=== PATIENT | female | born 1960 | race American Indian/Alaskan Native ===

== ENCOUNTER 2018-06-02 21:29 | Emergency (ER) | payer MEDICARE, OTHER ==
[2018-06-02 21:35] VITALS: BP 151/98
--- NOTE | 2018-06-02 23:16 | EDM.PDOC ---
ED HPI GENERAL MEDICAL PROBLEM - General Chief Complaint: Lower Extremity Injury/Pain Stated Complaint: RIGHT LEG PAIN [id number] Time Seen by Provider: 06/02/18 21:40 Source of Information: Reports: Patient History Limitations: Reports: No Limitations - History of Present Illness INITIAL COMMENTS - FREE TEXT/NARRATIVE: C/o right leg pain for past week, describes as burning throbbing sensation, Location of adriel moves lower to upper leg moves from side to side. No injury, hx RA and diabetes. No hx clotting disorder. Tried to be seen at [facility] [place] but unable to get appointment for another month. Right Leg Pain Score (Numeric/FACES): 9 - Related Data Allergies Allergy/AdvReac Type Severity Reaction Status Date / Time codeine Allergy Other Verified 06/02/18 21:35 Home Meds: Home Meds Omeprazole [Prilosec] 20 mg PO BID 11/19/13 [History] Hydroxychloroquine [Plaquenil] 200 mg PO BID 06/27/14 [History] Etanercept [Enbrel] 25 mg SQ WEEKLY 10/29/14 [History] Cyclobenzaprine [Flexeril] 10 mg PO DAILY PRN 12/24/14 [History] Aspirin [Adult Low Dose Aspirin EC] 81 mg PO DAILY 01/24/17 [History] Ibuprofen 800 mg PO Q6HR PRN 01/24/17 [History] Lisinopril 10 mg PO DAILY 01/24/17 [History] DULoxetine HCl [Duloxetine HCl] 90 mg PO DAILY 06/02/18 [History] Past Medical History Cardiovascular History: Reports: High Cholesterol, Hypertension Gastrointestinal History: Reports: GERD Musculoskeletal History: Reports: Fracture Endocrine/Metabolic History: Reports: Diabetes, Type II - Past Surgical History GI Surgical History: Reports: Cholecystectomy Social & Family History - Tobacco Use Smoking Status *Q: Current Every Day Smoker Years of Tobacco use: 20 Packs/Tins Daily: 0.5 Second Hand Smoke Exposure: Yes - Recreational Drug Use Recreational Drug Use: No Review of Systems - Review of Systems Review Of Systems: ROS reveals no pertinent complaints other than HPI. ED EXAM, GENERAL - Physical Exam Exam: See Below Exam Limited By: No Limitations General Appearance: Alert, No Apparent Distress Eye Exam: Bilateral Eye: EOMI Ears: Normal External Exam Nose: Normal Inspection Throat/Mouth: Normal Inspection, Normal Gums, Normal Oropharynx Head: Atraumatic, Normocephalic Neck: Normal Inspection Respiratory/Chest: No Respiratory Distress, Lungs Clear, Normal Breath Sounds Cardiovascular: Normal Peripheral Pulses, Regular Rate, Rhythm Peripheral Pulses: 2+: Dorsalis Pedis (R) GI/Abdominal: Normal Bowel Sounds Extremities: Other (scatterd variscosities right lower leg, none superficially apparent in current location of pain in lateral upper portion of anterior lower leg) Neurological: Alert, Oriented, Normal Cognition, Normal Gait Psychiatric: Normal Affect Skin Exam: Warm, Dry, Intact, Normal Color Course - Vital Signs Last Recorded V/S: Last Vital Signs Temp 97.1 F 06/02/18 21:32 Pulse 79 06/02/18 21:32 Resp 18 06/02/18 21:32 BP 151/98 H 06/02/18 21: Pulse Ox 96 06/02/18 21:32 - Orders/Labs/Meds Labs: Laboratory Tests 06/02/18 06/02/18 06/02/18 Range/Units 22:50 22:50 22:50 WBC 12.5 H (5.0-10.0) 10^3/uL RBC 4.71 (4.2-5.4) 10^6/uL Hgb 13.9 (12.0-16.0) g/dL Hct 42.8 (37.0-47.0) % MCV 90.9 (80-100) fL MCH 29.5 (27.0-34.0) pg MCHC 32.5 L (33.0-35.0) g/dL Plt Count 336 (150-450) 10^3/uL Neut % (Auto) 46.0 (42.2-75.2) % Lymph % (Auto) 45.4 (20.5-50.1) % [place] % (Auto) 7.0 (2-8) % Eos % (Auto) 1.4 (1.0-3.0) % Baso % (Auto) 0.2 (0.0-1.0) % D-Dimer, Quantitative 203 (0-400) ng/mL Sodium 137 (135-145) mmol/L Potassium 4.0 (3.6-5.0) mmol/L Chloride 101 (101-111) mmol/L Carbon Dioxide 26.0 (21.0-31.0) mmol/L Anion Gap 14.0 BUN 16 (7-18) mg/dL Creatinine 0.7 (0.6-1.3) mg/dL Est Cr Clr Drug Dosing 80.75 mL/min Estimated GFR (MDRD) > 60 BUN/Creatinine Ratio 22.85 Glucose 112 H (74-105) mg/dL Calcium 9.0 (8.4-10.2) mg/dl Total Bilirubin 0.4 (0.2-1.0) mg/dL AST 20 (10-42) IU/L ALT 18 (10-60) IU/L Alkaline Phosphatase 96 (42-121) IU/L C-Reactive Protein (0.0-1.3) mg/dL Total Protein 7.6 (6.7-8.2) g/dl Albumin 4.0 (3.2-5.5) g/dl Globulin 3.6 Albumin/Globulin Ratio 1.11 06/02/18 Range/Units 22:50 WBC (5.0-10.0) 10^3/uL RBC (4.2-5.4) 10^6/uL Hgb (12.0-16.0) g/dL Hct (37.0-47.0) % MCV (80-100) fL MCH (27.0-34.0) pg MCHC (33.0-35.0) g/dL Plt Count (150-450) 10^3/uL Neut % (Auto) (42.2-75.2) % Lymph % (Auto) (20.5-50.1) % [place] % (Auto) (2-8) % Eos % (Auto) (1.0-3.0) % Baso % (Auto) (0.0-1.0) % D-Dimer, Quantitative (0-400) ng/mL Sodium (135-145) mmol/L Potassium (3.6-5.0) mmol/L Chloride (101-111) mmol/L Carbon Dioxide (21.0-31.0) mmol/L Anion Gap BUN (7-18) mg/dL Creatinine (0.6-1.3) mg/dL Est Cr Clr Drug Dosing mL/min Estimated GFR (MDRD) BUN/Creatinine Ratio Glucose (74-105) mg/dL Calcium (8.4-10.2) mg/dl Total Bilirubin (0.2-1.0) mg/dL AST (10-42) IU/L ALT (10-60) IU/L Alkaline Phosphatase (42-121) IU/L C-Reactive Protein 1.0 (0.0-1.3) mg/dL Total Protein (6.7-8.2) g/dl Albumin (3.2-5.5) g/dl Globulin Albumin/Globulin Ratio Departure - Departure Time of Disposition: 23:44 Disposition: Home, Self-Care 01 Condition: Good Clinical Impression: Leg pain, anterior Qualifiers: Laterality: right Qualified Code(s): M79.604 - Pain in right leg - Discharge Information *PRESCRIPTION DRUG MONITORING PROGRAM REVIEWED*: Not Applicable Instructions: Musculoskeletal Pain Referrals: PCP,None [Primary Care Provider] - Forms: ED Department Discharge Additional Instructions: light activity follow in clinic for ultrasound and further testing tylenol 650mg every 4-6 hours as needed for discomfort aspirin 81mg enteric coated daily
[2018-06-02 23:17] LABS: CHLORIDE,CL 101 mmol/L (101-111); SODIUM,NA 137 mmol/L (135-145)
== END 2018-06-02 23:53 | disposition home or self-care (01) ==
LOC: DL.ED 21:29
DX: M79.604 Pain in right leg (principal); I10 Essential (primary) hypertension; E11.9 Type 2 diabetes mellitus without complications; F17.210 Nicotine dependence, cigarettes, uncomplicated; Z88.5 Allergy status to narcotic agent; Z79.82 Long term (current) use of aspirin; Z79.899 Other long term (current) drug therapy
CPT/HCPCS: 36415; 80053; 85025; 85379; 86140; 99283

== ENCOUNTER 2019-05-15 08:00 | Emergency (ER) | payer MEDICARE, OTHER ==
[2019-05-15 08:26] VITALS: BP 137/73; PULSE 73
--- NOTE | 2019-05-15 08:34 | EDM.PDOC ---
ED HPI GENERAL MEDICAL PROBLEM - General Chief Complaint: Neuro Symptoms/Deficits Stated Complaint: FELL THIS MORNING- NO BALANCE Time Seen by Provider: 05/15/19 08:10 Source of Information: Reports: Patient, Family, RN, RN Notes Reviewed History Limitations: Reports: No Limitations - History of Present Illness INITIAL COMMENTS - FREE TEXT/NARRATIVE: Pt to ER with c/o dizziness. States the past two night she has gotten out of bed and felt very weak and dizzy. Patient states today she fell. Denies hitting her head or getting knocked out. Patient denies recent illness. Denies cough, congestion, runny nose, fever, chills, chest pain, SOB, vomiting or diarrhea. Pt states she is nauseated, especially when she sits up. States she has trouble with her eyes, so blurred vision at times is not new for her. States today her arms feel cool and tingly. Denies urinary sx. NIH score = 0 Onset: Today, Sudden - Related Data Allergies Allergy/AdvReac Type Severity Reaction Status Date / Time codeine Allergy Other Verified 05/15/19 09:21 Home Meds: Home Meds Omeprazole [Prilosec] 20 mg PO BID 11/19/13 [History] Hydroxychloroquine [Plaquenil] 200 mg PO BID 06/27/14 [History] Aspirin [Adult Low Dose Aspirin EC] 81 mg PO DAILY 01/24/17 [History] Ibuprofen 800 mg PO Q6HR PRN 01/24/17 [History] DULoxetine HCl [Duloxetine HCl] 60 mg PO DAILY 06/02/18 [History] Etanercept [Enbrel] 50 mg SUBCUT WEEKLY 05/15/19 [History] Ketorolac [Toradol] 10 mg PO Q8H PRN 05/15/19 [History] Losartan [Cozaar] 25 mg PO DAILY 05/15/19 [History] Propranolol HCl [Propranolol] 120 mg PO DAILY 05/15/19 [History] SUMAtriptan [Imitrex] 50 mg PO ASDIRECTED PRN 05/15/19 [History] atorvaSTATin [Lipitor] 10 mg PO DAILY 05/15/19 [History] Past Medical History Cardiovascular History: Reports: High Cholesterol, Hypertension Gastrointestinal History: Reports: GERD Musculoskeletal History: Reports: Fracture Endocrine/Metabolic History: Reports: Diabetes, Type II - Past Surgical History GI Surgical History: Reports: Cholecystectomy ED ROS GENERAL - Review of Systems Review Of Systems: ROS reveals no pertinent complaints other than HPI. ED EXAM, DIZZINESS - Physical Exam Exam: See Below Exam Limited By: No Limitations General Appearance: Alert, WD/WN, Mild Distress Eye Exam: Bilateral Eye: Nystagmus (minimal) Ears: Normal External Exam, Hearing Grossly Normal Nose: Nasal Tenderness Throat/Mouth: Normal Inspection, Normal Lips, Normal Teeth, Normal Gums, Normal Oropharynx, Normal Voice, No Airway Compromise Head Exam: Atraumatic, Normocephalic Neck: Normal Inspection, Supple, Non-Tender, Full Range of Motion Respiratory/Chest: No Respiratory Distress, No Accessory Muscle Use, Chest Non- Tender, Crackles (fine, bases bilaterally) Cardiovascular: Normal Peripheral Pulses, Regular Rate, Rhythm, No Edema, No Gallop, No JVD, No Murmur, No Rub GI/Abdominal: Normal Bowel Sounds, Soft, Non-Tender, No Organomegaly, No Distention, No Abnormal Bruit, No Mass (Female) Exam: Deferred Rectal (Female) Exam: Deferred Neurological: Alert, Normal Mood/Affect, Normal Dorsiflexion, CN II-XII Intact, Normal Plantar Flexion, Normal Gait, Normal Reflexes, No Motor/Sensory Deficits , Oriented x 3 Back Exam: Normal Inspection, Full Range of Motion Extremities: Normal Inspection, Normal Range of Motion, Non-Tender, No Pedal Edema, Normal Capillary Refill Psychiatric: Normal Affect, Normal Mood Skin Exam: Warm, Dry, Intact, Normal Color, No Rash Course - Vital Signs Last Recorded V/S: Last Vital Signs Temp 97.0 F 05/15/19 08:22 Pulse 73 05/15/19 08:22 Resp 16 05/15/19 08:22 BP 137/73 05/15/19 08:22 Pulse Ox 95 05/15/19 08:22 - Orders/Labs/Meds Orders: Active Orders 24 hr Category Date Time Status EKG Documentation Completion [RC] STAT Care 05/15/19 08:28 Active Peripheral IV Care [RC] . DIRECTED Care 05/15/19 08:29 Active Consult to Physical Therapy [PT Evaluation and Cons 05/15/19 09:44 Active Treatment] [CONS] Routine CULTURE URINE [RM] Stat Lab 05/15/19 10:37 Received Peripheral IV Insertion Adult [OM.PC] Stat Oth 05/15/19 08:28 Ordered Labs: Laboratory Tests 05/15/19 05/15/19 05/15/19 Range/Units 08:52 08:52 08:52 WBC 8.5 (5.0-10.0) 10^3/uL RBC 4.95 (4.2-5.4) 10^6/uL Hgb 14.7 (12.0-16.0) g/dL Hct 45.3 (37.0-47.0) % MCV 91.5 (80-100) fL MCH 29.7 (27.0-34.0) pg MCHC 32.5 L (33.0-35.0) g/dL Plt Count 344 (150-450) 10^3/uL Neut % (Auto) 48.5 (42.2-75.2) % Lymph % (Auto) 40.3 (20.5-50.1) % [place] % (Auto) 9.1 H (2-8) % Eos % (Auto) 1.9 (1.0-3.0) % Baso % (Auto) 0.2 (0.0-1.0) % Add Manual Diff Yes Neutrophils % (Manual) 48 (42-75) % Lymphocytes % (Manual) 48 (20-50) % Monocytes % (Manual) 4 (2-8) % Atypical Lymphocytes Few PT 9.1 (9.0-12.0) SEC INR 0.9 (0.9-1.2) Sodium 139 (135-145) mmol/L Potassium 3.8 (3.6-5.0) mmol/L Chloride 102 (101-111) mmol/L Carbon Dioxide 26.0 (21.0-31.0) mmol/L Anion Gap 14.8 BUN 17 (7-18) mg/dL Creatinine 0.7 (0.6-1.3) mg/dL Est Cr Clr Drug Dosing TNP Estimated GFR (MDRD) > 60 BUN/Creatinine Ratio 24.28 Glucose 135 H (74-105) mg/dL Calcium 8.8 (8.4-10.2) mg/dl Total Bilirubin 0.4 (0.2-1.0) mg/dL AST 18 (10-42) IU/L ALT 21 (10-60) IU/L Alkaline Phosphatase 90 (42-121) IU/L Troponin I < 0.02 (0.00-0.02) ng/ml Total Protein 7.8 (6.7-8.2) g/dl Albumin 3.9 (3.2-5.5) g/dl Globulin 3.9 Albumin/Globulin Ratio 1.00 Urine Color (YELLOW) Urine Appearance (CLEAR) Urine pH (5.0-9.0) Ur Specific [place] (1.005-1.030) Urine Protein (NEGATIVE) Urine Glucose (UA) (NEGATIVE) Urine Ketones (NEGATIVE) Urine Occult Blood (NEGATIVE) Urine Nitrite (NEGATIVE) Urine Bilirubin (NEGATIVE) Urine Urobilinogen (0.2-1.0) mg/dL Ur Leukocyte Esterase (NEGATIVE) Urine RBC /HPF Urine WBC (0-5/HPF) /HPF Ur Epithelial Cells (NOT SEEN) /HPF Amorphous Sediment (NOT SEEN) /HPF Urine Bacteria (0-FEW/HPF) /HPF Urine Mucus (NOT SEEN) /LPF 05/15/19 Range/Units 10:37 WBC (5.0-10.0) 10^3/uL RBC (4.2-5.4) 10^6/uL Hgb (12.0-16.0) g/dL Hct (37.0-47.0) % MCV (80-100) fL MCH (27.0-34.0) pg MCHC (33.0-35.0) g/dL Plt Count (150-450) 10^3/uL Neut % (Auto) (42.2-75.2) % Lymph % (Auto) (20.5-50.1) % [place] % (Auto) (2-8) % Eos % (Auto) (1.0-3.0) % Baso % (Auto) (0.0-1.0) % Add Manual Diff Neutrophils % (Manual) (42-75) % Lymphocytes % (Manual) (20-50) % Monocytes % (Manual) (2-8) % Atypical Lymphocytes PT (9.0-12.0) SEC INR (0.9-1.2) Sodium (135-145) mmol/L Potassium (3.6-5.0) mmol/L Chloride (101-111) mmol/L Carbon Dioxide (21.0-31.0) mmol/L Anion Gap BUN (7-18) mg/dL Creatinine (0.6-1.3) mg/dL Est Cr Clr Drug Dosing Estimated GFR (MDRD) BUN/Creatinine Ratio Glucose (74-105) mg/dL Calcium (8.4-10.2) mg/dl Total Bilirubin (0.2-1.0) mg/dL AST (10-42) IU/L ALT (10-60) IU/L Alkaline Phosphatase (42-121) IU/L Troponin I (0.00-0.02) ng/ml Total Protein (6.7-8.2) g/dl Albumin (3.2-5.5) g/dl Globulin Albumin/Globulin Ratio Urine Color Yellow (YELLOW) Urine Appearance Cloudy (CLEAR) Urine pH 6.0 (5.0-9.0) Ur Specific [place] 1.010 (1.005-1.030) Urine Protein Negative (NEGATIVE) Urine Glucose (UA) Negative (NEGATIVE) Urine Ketones Negative (NEGATIVE) Urine Occult Blood Trace-intact H (NEGATIVE) Urine Nitrite Positive H (NEGATIVE) Urine Bilirubin Negative (NEGATIVE) Urine Urobilinogen 0.2 (0.2-1.0) mg/dL Ur Leukocyte Esterase Negative (NEGATIVE) Urine RBC 0-5 /HPF Urine WBC 5-10 H (0-5/HPF) /HPF Ur Epithelial Cells Few (NOT SEEN) /HPF Amorphous Sediment Few (NOT SEEN) /HPF Urine Bacteria Many H (0-FEW/HPF) /HPF Urine Mucus Moderate H (NOT SEEN) /LPF Meds: Medications Discontinued Medications Generic Name Dose Route Start Last Admin Trade Name Freq PRN Reason Stop Dose Admin Sodium Chloride 1,000 mls @ 999 mls/hr 05/15/19 08:58 05/15/19 09:19 Normal Saline IV 05/15/19 09:58 999 mls/hr .BOLUS ONE Administration Ondansetron HCl 4 mg 05/15/19 10:31 05/15/19 10:36 Zofran IV 05/15/19 10:32 4 mg ONETIME ONE Administration Sodium Chloride 10 ml 05/15/19 08:28 05/15/19 09:20 Saline Flush FLUSH 10 ml ASDIRECTED PRN Administration Keep Vein Open - Radiology Interpretation Free Text/Narrative:: Chest xray: FINDINGS: Lungs: Mid inspiratory effort with resultant low lung volumes. There is minimal bibasilar atelectasis. Pleural space: Unremarkable. No pleural effusion. No pneumothorax. Heart/Mediastinum: Unremarkable. No cardiomegaly. Bones/joints: Unremarkable. IMPRESSION: There is minimal bibasilar atelectasis. Thank you for allowing us to participate in the care of your patient. Dictated and Authenticated by: Lonny Torrez MD 05/15/2019 9:21 AM Central Time ([place] & [place]) Head CT wo contrast: FINDINGS: Brain: Normal. No hemorrhage. Unremarkable white matter. No mass effect. Ventricles: Normal. No ventriculomegaly. Bones/joints: Unremarkable. No acute fracture. Sinuses: Visualized sinuses are unremarkable. No fluid levels. Mastoid air cells: Visualized mastoid air cells are well aerated. Soft tissues: Unremarkable. IMPRESSION: 1. No acute intracranial abnormality. 2. Danielle Stroke Program Early CT Score (ASPECTS) = 10. See rad report Departure - Departure Time of Disposition: 11:12 Disposition: Home, Self-Care 01 Condition: Fair Clinical Impression: UTI (urinary tract infection) Qualifiers: Urinary tract infection type: site unspecified Hematuria presence: without hematuria Qualified Code(s): N39.0 - Urinary tract infection, site not specified - Discharge Information *PRESCRIPTION DRUG MONITORING PROGRAM REVIEWED*: No *COPY OF PRESCRIPTION DRUG MONITORING REPORT IN PATIENT MONIQUE: No Instructions: Urinary Tract Infection, Adult, [id number], Dizziness, Easy-to- Read Referrals: PCP,None [Primary Care Provider] - Forms: ED Department Discharge Additional Instructions: Drink plenty of water Monitor your blood sugars RX: Nitrofurantoin Follow up with your primary care facility if no improvement for further workup ( possible carotid US or cardiology referral) - My Orders Last 24 Hours: My Active Orders 05/15/19 08:28 EKG Documentation Completion [RC] STAT Peripheral IV Insertion Adult [OM.PC] Stat 05/15/19 08:29 Peripheral IV Care [RC] . DIRECTED 05/15/19 09:44 Consult to Physical Therapy [PT Evaluation and Treatment] [CONS] Routine 05/15/19 10:37 CULTURE URINE [RM] Stat - Assessment/Plan Last 24 Hours: My Active Orders 05/15/19 08:28 EKG Documentation Completion [RC] STAT Peripheral IV Insertion Adult [OM.PC] Stat 05/15/19 08:29 Peripheral IV Care [RC] . DIRECTED 05/15/19 09:44 Consult to Physical Therapy [PT Evaluation and Treatment] [CONS] Routine 05/15/19 10:37 CULTURE URINE [RM] Stat
[2019-05-15 09:18] LABS: ANION GAP 14.8; CHLORIDE,CL 102 mmol/L (101-111); SODIUM,NA 139 mmol/L (135-145)
[2019-05-15] MEDS: Sodium Chloride 0.9% 1,000 ML IV ONE (09:19)
[2019-05-15] MEDS: Sodium Chloride 0.9% 10 ML Syringe FLUSH PRN (09:20)
[2019-05-15] MEDS: Ondansetron 4 MG/2 ML SDV IV ONE (10:36)
== END 2019-05-15 11:32 | disposition home or self-care (01) ==
LOC: DL.ED 08:00
DX: R42 Dizziness and giddiness (principal); N39.0 Urinary tract infection, site not specified; I10 Essential (primary) hypertension; E11.9 Type 2 diabetes mellitus without complications; Z90.49 Acquired absence of other specified parts of digestive tract; Z88.5 Allergy status to narcotic agent; W19.XXXA Unspecified fall, initial encounter
CPT/HCPCS: 36415; 70450; 71045; 80053; 81001; 84484; 85025; 85610; 87086; 87088; 87186; 93005; 96361; 96374; 99284-25; J2405; J7030

== ENCOUNTER 2019-11-20 21:25 | Inpatient (IN) | payer MEDICARE, OTHER ==
[2019-11-20] MEDS ORDERED: Iopamidol 612 MG/ML 100 ML Bottle IVPUSH ONE (22:58)
[2019-11-20] MEDS ORDERED: Potassium Chloride 10 MEQ in Premix Bag 1 BAG IV ONE (23:57)
[2019-11-21] MEDS ORDERED: Piperacillin/Tazobactam 3.375 GM in Sodium Chloride 0.9% 100 ML IV ONE ×2 (00:02→01:30)
--- NOTE | 2019-11-21 00:07 | EDM.PDOC ---
"ED HPI GENERAL MEDICAL PROBLEM - General Chief Complaint: Genitourinary Problem Time Seen by Provider: 11/20/19 22:00 Source of Information: Reports: Patient History Limitations: Reports: No Limitations - History of Present Illness INITIAL COMMENTS - FREE TEXT/NARRATIVE: ED with c/o feeling weak, no appetite, nausea without vomiting weak x 6 days. States noting solid but has been trying to push water and gatorade, Fever up to 102 today, Diaphoretic for EMS. On plaquinel and Enbrel. Seen at [facility] yesterday told pneumonia and UTI started on Azithromycin and bactrim. 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, NSAIDS Generalized Pain Score (Numeric/FACES): 5 - Related Data Allergies Allergy/AdvReac Type Severity Reaction Status Date / Time No Known Allergies Allergy Verified 11/21/19 01:29 Home Meds: Home Meds Omeprazole [Prilosec] 20 mg PO BID 11/19/13 [History] Hydroxychloroquine [Plaquenil] 200 mg PO BID 06/27/14 [History] Aspirin [Adult Low Dose Aspirin EC] 81 mg PO DAILY 01/24/17 [History] Ibuprofen 800 mg PO Q6HR PRN 01/24/17 [History] DULoxetine HCl [Duloxetine HCl] 60 mg PO DAILY 06/02/18 [History] Etanercept [Enbrel] 50 mg SUBCUT WEEKLY 05/15/19 [History] Losartan [Cozaar] 25 mg PO DAILY 05/15/19 [History] Propranolol HCl [Propranolol] 120 mg PO DAILY 05/15/19 [History] SUMAtriptan [Imitrex] 50 mg PO ASDIRECTED PRN 05/15/19 [History] atorvaSTATin [Lipitor] 10 mg PO DAILY 05/15/19 [History] Past Medical History Cardiovascular History: Reports: High Cholesterol, Hypertension Gastrointestinal History: Reports: GERD Genitourinary History: Reports: UTI, Recurrent PUMPER BREWERY History: Reports: Musculoskeletal History: Reports: Fracture Endocrine/Metabolic History: Reports: Diabetes, Type II - Past Surgical History GI Surgical History: Reports: Cholecystectomy Social & Family History - Tobacco Use Smoking Status *Q: Current Every Day Smoker Years of Tobacco use: 37 Packs/Tins Daily: 0.5 Used Tobacco, but Quit: No Second Hand Smoke Exposure: Yes - Caffeine Use Caffeine Use: Reports: Coffee - Recreational Drug Use Recreational Drug Use: No ED ROS GENERAL - Review of Systems Review Of Systems: See Below Constitutional: Reports: Fever, Malaise, Weakness, Fatigue, Diaphoresis, Decreased Appetite HEENT: Reports: No Symptoms Respiratory: Reports: No Symptoms Cardiovascular: Reports: No Symptoms GI/Abdominal: Reports: Abdominal Pain, Anorexia, Decreased Appetite : Reports: Urgency Musculoskeletal: Reports: Joint Pain (RA) Skin: Reports: No Symptoms Neurological: Reports: Weakness (generalized) ED EXAM, GI/ABD - Physical Exam Exam: See Below Exam Limited By: Other General Appearance: Moderate Distress, Obese Eyes: Bilateral: EOMI Ears: Normal External Exam Nose: Normal Inspection Throat/Mouth: Normal Inspection Head: Atraumatic, Normocephalic Neck: Normal Inspection, Full Range of Motion Respiratory/Chest: No Respiratory Distress, Lungs Clear, Normal Breath Sounds Cardiovascular: Normal Peripheral Pulses, Regular Rate, Rhythm GI/Abdominal Exam: Tender (general greater mid), Abnormal Bowel Sounds ( hypoactive). No: Guarding, Rebound, Hepatomegaly, Splenomegaly Extremities: Normal Inspection Neurological: Alert, Oriented, Normal Cognition Psychiatric: Normal Affect Skin Exam: Warm, Dry, Intact Course - Vital Signs Last Recorded V/S: Last Vital Signs Temp 97.2 F 11/21/19 00:58 Pulse 66 11/21/19 00:58 Resp 16 11/21/19 00:58 BP 106/51 L 11/21/19 00:58 Pulse Ox 96 11/21/19 00:58 - Orders/Labs/Meds Orders: Active Orders 24 hr Category Date Time Status Abdomen Pelvis w Cont [CT] Urgent Exams 11/20/19 22:57 Taken CXR [Chest 1V Frontal] [CR] Urgent Exams 11/20/19 21:38 Taken CULTURE BLOOD [BC] Stat Lab 11/20/19 22:10 Received CULTURE BLOOD [BC] Stat Lab 11/20/19 22:15 Received CULTURE URINE [RM] Stat Lab 11/20/19 21:43 Received Blood Culture x2 Reflex Set [OM.PC] Stat Oth 11/20/19 21:38 Ordered Medication Orders Acetaminophen (Tylenol) 650 mg PO Q4H PRN PRN Reason: Pain (Mild 1-3)/fever Aspirin (Halfprin) 81 mg PO DAILY URIEL Atorvastatin Calcium (Lipitor) 10 mg PO DAILY URIEL Docusate Sodium (Colace) 100 mg PO BID PRN PRN Reason: Constipation Duloxetine HCl (Cymbalta) 60 mg PO DAILY PENDING SALE TO [facility] Enoxaparin Sodium (Lovenox) 40 mg SUBCUT DAILY PENDING SALE TO [facility] Hydroxychloroquine Sulfate (Plaquenil) 200 mg PO BID PENDING SALE TO [facility] Sodium Chloride (Normal Saline) 1,000 mls @ 125 mls/hr IV ASDIRECTED PENDING SALE TO [facility] Piperacillin Sod/Tazobactam (Sod 3.375 gm/ Sodium Chloride) 100 mls @ 200 mls/ hr IV Q6H PENDING SALE TO [facility] Potassium Chloride 10 meq/ (Premix) 100 mls @ 100 mls/hr IV Q2H URIEL Stop: 11/21/19 04:59 Last Admin: 11/21/19 02:00 Dose: 100 mls/hr Losartan Potassium (Cozaar) 25 mg PO DAILY PENDING SALE TO [facility] Magnesium Hydroxide (Milk Of Magnesia) 30 ml PO Q12H PRN PRN Reason: Constipation Non-Formulary Medication (Sumatriptan [Imitrex]) 50 mg PO ASDIRECTED PRN PRN Reason: migraine Omeprazole (Omeprazole) 20 mg PO BIDAC PENDING SALE TO [facility] Ondansetron HCl (Zofran) 4 mg IVPUSH Q6H PRN PRN Reason: Nausea/Vomiting Propranolol HCl (Inderal La) 120 mg PO DAILY PENDING SALE TO [facility] Zolpidem Tartrate (Ambien) 5 mg PO BEDTIME PENDING SALE TO [facility] Labs: Laboratory Tests 11/20/19 11/20/19 11/20/19 Range/Units 21:43 22:15 22:15 WBC 17.5 H (5.0-10.0) 10^3/uL RBC 4.02 L (4.2-5.4) 10^6/uL Hgb 11.9 L D (12.0-16.0) g/dL Hct 35.4 L (37.0-47.0) % MCV 88.1 D (80-100) fL MCH 29.6 (27.0-34.0) pg MCHC 33.6 (33.0-35.0) g/dL Plt Count 334 (150-450) 10^3/uL Neut % (Auto) 67.4 (42.2-75.2) % Lymph % (Auto) 22.0 (20.5-50.1) % [place] % (Auto) 10.2 H (2-8) % Eos % (Auto) 0.3 L (1.0-3.0) % Baso % (Auto) 0.1 (0.0-1.0) % Add Manual Diff Yes Neutrophils % (Manual) 68 (42-75) % Lymphocytes % (Manual) 20 (20-50) % Monocytes % (Manual) 12 H (2-8) % Sodium 132 L (136-145) mmol/L Potassium 3.0 L (3.5-5.1) mmol/L Chloride 95 L (98-107) mmol/L Carbon Dioxide 25 (21-32) mmol/L Anion Gap 15.0 H (7-13) mEq/L BUN 8 (7-18) mg/dL Creatinine 0.97 (0.55-1.02) mg/dL Est Cr Clr Drug Dosing 56.89 mL/min Estimated GFR (MDRD) 59 BUN/Creatinine Ratio 8.2 (No establ ref range) Glucose 128 H (74-99) mg/dL Lactic Acid (0.4-2.0) mmol/L Calcium 7.8 L (8.5-10.1) mg/dL Total Bilirubin 0.6 (0.2-1.0) mg/dL AST 15 (15-37) U/L ALT 25 (14-59) U/L Alkaline Phosphatase 85 (46-116) U/L B-Natriuretic Peptide (0-100) pg/ml Total Protein 7.3 (6.4-8.2) g/dL Albumin 2.9 L (3.4-5.0) g/dL Globulin 4.4 Albumin/Globulin Ratio 0.66 Amylase 9 L (25-115) U/L Lipase 68 L (73-393) U/L Urine Color Yellow (YELLOW) Urine Appearance Cloudy (CLEAR) Urine pH 6.0 (5.0-9.0) Ur Specific [place] 1.015 (1.005-1.030) Urine Protein 100 H (NEGATIVE) Urine Glucose (UA) Negative (NEGATIVE) Urine Ketones Negative (NEGATIVE) Urine Occult Blood Moderate H (NEGATIVE) Urine Nitrite Negative (NEGATIVE) Urine Bilirubin Negative (NEGATIVE) Urine Urobilinogen 1.0 (0.2-1.0) mg/dL Ur Leukocyte Esterase Trace H (NEGATIVE) Urine RBC 5-10 H /HPF Urine WBC 5-10 H (0-5/HPF) /HPF Ur Epithelial Cells Many H (NOT SEEN) /HPF Amorphous Sediment Few (NOT SEEN) /HPF Urine Bacteria Moderate H (0-FEW/HPF) /HPF Urine Mucus Moderate H (NOT SEEN) /LPF 11/20/19 11/20/19 Range/Units 22:15 22:15 WBC (5.0-10.0) 10^3/uL RBC (4.2-5.4) 10^6/uL Hgb (12.0-16.0) g/dL Hct (37.0-47.0) % MCV (80-100) fL MCH (27.0-34.0) pg MCHC (33.0-35.0) g/dL Plt Count (150-450) 10^3/uL Neut % (Auto) (42.2-75.2) % Lymph % (Auto) (20.5-50.1) % [place] % (Auto) (2-8) % Eos % (Auto) (1.0-3.0) % Baso % (Auto) (0.0-1.0) % Add Manual Diff Neutrophils % (Manual) (42-75) % Lymphocytes % (Manual) (20-50) % Monocytes % (Manual) (2-8) % Sodium (136-145) mmol/L Potassium (3.5-5.1) mmol/L Chloride (98-107) mmol/L Carbon Dioxide (21-32) mmol/L Anion Gap (7-13) mEq/L BUN (7-18) mg/dL Creatinine (0.55-1.02) mg/dL Est Cr Clr Drug Dosing mL/min Estimated GFR (MDRD) BUN/Creatinine Ratio (No establ ref range) Glucose (74-99) mg/dL Lactic Acid 0.5 (0.4-2.0) mmol/L Calcium (8.5-10.1) mg/dL Total Bilirubin (0.2-1.0) mg/dL AST (15-37) U/L ALT (14-59) U/L Alkaline Phosphatase (46-116) U/L B-Natriuretic Peptide 16 (0-100) pg/ml Total Protein (6.4-8.2) g/dL Albumin (3.4-5.0) g/dL Globulin Albumin/Globulin Ratio Amylase (25-115) U/L Lipase (73-393) U/L Urine Color (YELLOW) Urine Appearance (CLEAR) Urine pH (5.0-9.0) Ur Specific [place] (1.005-1.030) Urine Protein (NEGATIVE) Urine Glucose (UA) (NEGATIVE) Urine Ketones (NEGATIVE) Urine Occult Blood (NEGATIVE) Urine Nitrite (NEGATIVE) Urine Bilirubin (NEGATIVE) Urine Urobilinogen (0.2-1.0) mg/dL Ur Leukocyte Esterase (NEGATIVE) Urine RBC /HPF Urine WBC (0-5/HPF) /HPF Ur Epithelial Cells (NOT SEEN) /HPF Amorphous Sediment (NOT SEEN) /HPF Urine Bacteria (0-FEW/HPF) /HPF Urine Mucus (NOT SEEN) /LPF Meds: Medications Generic Name Dose Route Start Last Admin Trade Name Freq PRN Reason Stop Dose Admin Acetaminophen 650 mg 11/21/19 00:57 Tylenol PO Q4H PRN Pain (Mild 1-3)/fever Aspirin 81 mg 11/21/19 09:00 Halfprin PO DAILY PENDING SALE TO [facility] Atorvastatin Calcium 10 mg 11/21/19 09:00 Lipitor PO DAILY PENDING SALE TO [facility] Docusate Sodium 100 mg 11/21/19 00:57 Colace PO BID PRN Constipation Duloxetine HCl 60 mg 11/21/19 09:00 Cymbalta PO DAILY PENDING SALE TO [facility] Enoxaparin Sodium 40 mg 11/21/19 09:00 Lovenox SUBCUT DAILY PENDING SALE TO [facility] Hydroxychloroquine Sulfate 200 mg 11/21/19 09:00 Plaquenil PO BID PENDING SALE TO [facility] Sodium Chloride 1,000 mls @ 125 mls/hr 11/21/19 01:00 Normal Saline IV ASDIRECTED PENDING SALE TO [facility] Piperacillin Sod/Tazobactam 100 mls @ 200 mls/hr 11/21/19 07:00 Sod 3.375 gm/ Sodium Chloride IV Q6H URIEL Potassium Chloride 10 meq/ 100 mls @ 100 mls/hr 11/21/19 02:00 11/21/19 02:00 Premix IV 11/21/19 04:59 100 mls/hr Q2H URIEL Administration Losartan Potassium 25 mg 11/21/19 09:00 Cozaar PO DAILY URIEL Magnesium Hydroxide 30 ml 11/21/19 00:57 Milk Of Magnesia PO Q12H PRN Constipation Non-Formulary Medication 50 mg 11/21/19 01:09 Sumatriptan [Imitrex] PO ASDIRECTED PRN migraine Omeprazole 20 mg 11/21/19 06:00 Omeprazole PO BIDAC URIEL Ondansetron HCl 4 mg 11/21/19 00:57 Zofran IVPUSH Q6H PRN Nausea/Vomiting Propranolol HCl 120 mg 11/21/19 09:00 Inderal La PO DAILY URIEL Zolpidem Tartrate 5 mg 11/21/19 21:00 Ambien PO BEDTIME URIEL Discontinued Medications Generic Name Dose Route Start Last Admin Trade Name Freq PRN Reason Stop Dose Admin Potassium Chloride 10 meq/ 100 mls @ 100 mls/hr 11/20/19 23:57 11/21/19 00:11 Premix IV 11/21/19 00:56 100 mls/hr ONETIME ONE Administration Piperacillin Sod/Tazobactam 100 mls @ 200 mls/hr 11/21/19 00:02 11/21/19 01: 19 Sod 3.375 gm/ Sodium Chloride IV 11/21/19 00:31 200 mls/hr ONETIME ONE Administration Piperacillin Sod/Tazobactam 100 mls @ 200 mls/hr 11/21/19 01:30 11/21/19 01: 46 Sod 3.375 gm/ Sodium Chloride IV 11/21/19 01:59 Not Given ONETIME ONE Iopamidol 100 ml 11/20/19 22:58 11/20/19 23:36 [id number] (61%) IVPUSH 11/20/19 22:59 100 ml ONETIME ONE Administration Zolpidem Tartrate 5 mg 11/21/19 02:00 11/21/19 02:03 Ambien PO 11/21/19 02:01 5 mg ONETIME ONE Administration - Radiology Interpretation Free Text/Narrative:: [facility] Final Radiology Report Call: [phone] assistance Online chat: [email or web address] Name: MALATHI SUAZO Age: 59Years F Date: 11/20/2019 SSN: -- : [id number] Study: CT ABDOMEN/PELVIS W Requesting Physician: FRANCE BARBER Images: [id number] Addl Studies: Provided Clinical History: Contrast: With Contrast Medium: [id number] Contrast Amount: 100 mL Contrast Method: iv Page 1 of 2 PROCEDURE INFORMATION: Exam: CT Abdomen And Pelvis With Contrast Exam date and time: 11/20/2019 11:14 PM Age: 59 years old Clinical indication: Abdominal pain; Generalized; Patient HX: Hematuria, wbc 17, 000. General abdomen pain TECHNIQUE: Imaging protocol: Computed tomography of the abdomen and pelvis with intravenous contrast. Radiation optimization: All CT scans at this facility use at least one of these dose optimization techniques: automated exposure control; mA and/or kV adjustment per patient size (includes targeted exams where dose is matched to clinical indication); or iterative reconstruction. Contrast material: [id number]; Contrast volume: 100 ml; Contrast route: IV; COMPARISON: No relevant prior studies available. FINDINGS: Liver: Fatty liver. The liver is large, measuring 22.4 centimeters craniocaudal dimension. Gallbladder and bile ducts: Prior cholecystectomy. Pancreas: Normal. No ductal dilation. Spleen: Normal. No splenomegaly. Adrenals: Normal. No mass. Kidneys and ureters: The diverticulitis changes are contiguous with inflammatory stranding in the mesenteric fat adjacent to the left kidney. Stomach and bowel: There are nonspecific air-fluid levels within small bowel. Colonic diverticulosis. There are nonspecific air-fluid levels in the colon. There are foci mild-to- moderate diverticulitis involving the descending colon. [id number] inflammatory stranding is present in the mesenteric MALATHI SUAZO | Final Radiology Report CONFIDENTIALITY STATEMENT This report is intended only for use by the referring physician, and only in accordance with law. If you received this in error, call [phone]. Page 2 of 2 adjacent to the areas of diverticulitis disease. There are components of wall thickening also present involving these particular locations. Appendix: The appendix is not identified. No pericecal inflammation. Intraperitoneal space: Unremarkable. No free air. No significant fluid collection. Vasculature: Unremarkable. No abdominal aortic aneurysm. Lymph nodes: There are multiple, diffuse, non pathologically enlarged mesenteric lymph nodes. This is a nonspecific finding. Bladder: Unremarkable as visualized. Reproductive: There is suggestion of fibroid changes involving the uterus. Bones/joints: There are degenerative changes involving the spine, SI joints, hips. Soft tissues: Unremarkable. IMPRESSION: 1. Fatty liver and hepatomegaly. 2. Nonspecific air-fluid levels within large and small bowel. This can be present with enterocolitis. Correlate clinically. 3. Foci of diverticulitis changes involving the descending colon. In addition to an inflammatory process, the differential diagnosis colonic wall thickening at these locations includes underlying neoplasm. Clinical correlation and follow-up recommended. There may be changes of secondary pyelonephritis involving the left kidney. Primary pyelonephritis involving the left kidney is not excluded. Thank you for allowing us to participate in the care of your patient. Dictated and Authenticated by: Jett Viramontes MD 11/20/2019 11:46 PM Central Time ([place] & [place]) - Re-Assessments/Exams Free Text/Narrative Re-Assessment/Exam: 11/21/19 03:30 Dr Herrera admit to [facility]. Patient denies travel . No known exposure to COV-ID 19. Departure - Departure Time of Disposition: 00:04 Disposition: Admitted As Inpatient 67 Condition: Good Clinical Impression: Pyelonephritis, Diverticulitis, Hypokalemia, Immunocompromised state due to drug therapy Rheumatoid arthritis Qualifiers: Rheumatoid arthritis location: unspecified site Rheumatoid factor presence: unspecified presence Qualified Code(s): M06.9 - Rheumatoid arthritis, unspecified - Discharge Information *PRESCRIPTION DRUG MONITORING PROGRAM REVIEWED*: No *COPY OF PRESCRIPTION DRUG MONITORING REPORT IN PATIENT MONIQUE: No Sepsis Event Note - Evaluation Sepsis Screening Result: No Definite Risk - Focused Exam Vital Signs: Vital Signs Temp Pulse Resp BP Pulse Ox 11/20/19 21:58 96.2 F L 67 18 122/52 L 95 Date Exam was Performed: 11/21/19 Time Exam was Performed: 03:29 - My Orders Last 24 Hours: My Active Orders 11/20/19 21:38 CXR [Chest 1V Frontal] [CR] Urgent Blood Culture x2 Reflex Set [OM.PC] Stat 11/20/19 21:43 CULTURE URINE [RM] Stat 11/20/19 22:10 CULTURE BLOOD [BC] Stat 11/20/19 22:15 CULTURE BLOOD [BC] Stat 11/20/19 22:57 Abdomen Pelvis w Cont [CT] Urgent - Assessment/Plan Last 24 Hours: My Active Orders 11/20/19 21:38 CXR [Chest 1V Frontal] [CR] Urgent Blood Culture x2 Reflex Set [OM.PC] Stat 11/20/19 21:43 CULTURE URINE [RM] Stat 11/20/19 22:10 CULTURE BLOOD [BC] Stat 11/20/19 22:15 CULTURE BLOOD [BC] Stat 11/20/19 22:57 Abdomen Pelvis w Cont [CT] Urgent"
[2019-11-21] MEDS ORDERED: Acetaminophen 325 MG Tab PO PRN (00:57)
[2019-11-21] MEDS ORDERED: Ondansetron 4 MG/2 ML SDV IVPUSH PRN (00:57)
[2019-11-21] MEDS ORDERED: Magnesium Hydroxide 400 MG/5 ML Susp 30 ML Cup PO PRN (00:57)
[2019-11-21] MEDS ORDERED: Docusate Sodium 100 MG Cap PO PRN (00:57)
[2019-11-21] MEDS ORDERED: SUMATRIPTAN 50 MG PO PRN (01:09)
--- NOTE | 2019-11-21 01:09 | PCM.HP ---
H&P History of Present Illness - General Date of Service: 11/21/19 Admit Problem/Dx: Admission Diagnosis/Problem Admission Diagnosis/Problem Pyelonephritis Source of Information: Patient History Limitations: Reports: No Limitations - History of Present Illness Initial Comments - Free Text/Narative: Gladis Car is a 59-year-old female who presented to the ED for evaluation of abdominal pain, low appetite with poor oral intake. Her past medical history significant for hypertension, hyperlipidemia Rheumatoid arthritis on Plaquinel and Enbrel. As per patient she is bee having abdominal pain for the past 5 to 6 days. Abdominal pain is generalized, sharp in nature, about 7/10 in severity with no relieving or aggravating factors. It is non radiating and not related to meals. It is accompanied by nausea without vomiting. Her appetite has been low and as a result has not been able to eat anything. She notes weakness. She reports on and off fever chills. Had fever of 102 F prior to presentation. She denies cough, SOB, chest pain. No diarrhea, constipation, dysuria, frequency. No recent travel or sick contact. She was seen at [facility] yesterday and was told she has bronchitis ad UTI. She was discharged on Azithromycin and Bactrim. In the ED labs revealed leukocytosis with left shift. CT abd/Pel was concerning for pyelonephritis vs diverticulosis. She was started on IV Zosyn and IVF. Onset of Symptoms: Reports: Gradual Duration of Symptoms: Reports: Day(s): Location: Reports: Abdomen Quality: Reports: Ache, Dull Severity: Moderate Improves with: Reports: None Worsens with: Reports: None Context: Reports: Rest Associated Symptoms: Reports: No Other Symptoms Generalized Pain Score (Numeric/FACES): 5 - Related Data Allergies/Adverse Reactions: Allergies Allergy/AdvReac Type Severity Reaction Status Date / Time No Known Allergies Allergy Verified 11/21/19 01:29 Home Medications: Home Meds Omeprazole [Prilosec] 20 mg PO BID 11/19/13 [History] Hydroxychloroquine [Plaquenil] 200 mg PO BID 06/27/14 [History] Aspirin [Adult Low Dose Aspirin EC] 81 mg PO DAILY 01/24/17 [History] Ibuprofen 800 mg PO Q6HR PRN 01/24/17 [History] DULoxetine HCl [Duloxetine HCl] 60 mg PO DAILY 06/02/18 [History] Etanercept [Enbrel] 50 mg SUBCUT WEEKLY 05/15/19 [History] Losartan [Cozaar] 25 mg PO DAILY 05/15/19 [History] Propranolol HCl [Propranolol] 120 mg PO DAILY 05/15/19 [History] SUMAtriptan [Imitrex] 50 mg PO ASDIRECTED PRN 05/15/19 [History] atorvaSTATin [Lipitor] 10 mg PO DAILY 05/15/19 [History] Past Medical History Cardiovascular History: Reports: High Cholesterol, Hypertension Gastrointestinal History: Reports: GERD Genitourinary History: Reports: UTI, Recurrent [employer] History: Reports: Musculoskeletal History: Reports: Fracture Endocrine/Metabolic History: Reports: Diabetes, Type II - Past Surgical History GI Surgical History: Reports: Cholecystectomy Social & Family History - Tobacco Use Smoking Status *Q: Current Every Day Smoker Years of Tobacco use: 37 Packs/Tins Daily: 0.5 Used Tobacco, but Quit: No Second Hand Smoke Exposure: Yes - Caffeine Use Caffeine Use: Reports: Coffee - Recreational Drug Use Recreational Drug Use: No H&P Review of Systems - Review of Systems: Review Of Systems: See Below General: Reports: Fever, Chills, Malaise, Weakness, Decreased Appetite HEENT: Reports: No Symptoms Pulmonary: Reports: No Symptoms Cardiovascular: Reports: No Symptoms Gastrointestinal: Reports: Abdominal Pain, Nausea Genitourinary: Reports: No Symptoms Musculoskeletal: Reports: No Symptoms Skin: Reports: No Symptoms Psychiatric: Reports: No Symptoms Neurological: Reports: No Symptoms Hematologic/Lymphatic: Reports: No Symptoms Immunologic: Reports: No Symptoms Exam - Exam Exam: See Below - Vital Signs Vital Signs: Last Vital Signs Temp 96.2 F L 11/20/19 21:58 Pulse 67 11/20/19 21:58 Resp 18 11/20/19 21:58 BP 122/52 L 11/20/19 21:58 Pulse Ox 95 11/20/19 21:58 Weight: 269 lb 3.2 oz - Exam Quality Assessment: DVT Prophylaxis General: Alert, Oriented, 4 HEENT: PERRLA, Hearing Intact, Mucosa Moist & [place], Nares Patent, Normal Nasal Septum, Posterior Pharynx Clear, Conjunctiva Clear, EOMI, EACs Clear, TMs Clear Neck: Supple, Trachea Midline, 2 Lungs: Clear to Auscultation, Normal Respiratory Effort Cardiovascular: Regular Rate, Regular Rhythm GI/Abdominal Exam: Normal Bowel Sounds, Soft, Non-Tender, No Organomegaly, No Distention, No Abnormal Bruit, No Mass, Pelvis Stable, Other (CVA tenderness b/ l) (Female) Exam: Normal External Exam, Normal Speculum Exam, Normal Bimanual Exam Rectal (Female) Exam: Normal Exam, Normal Rectal Tone Back Exam: Normal Inspection, Full Range of Motion, NT Extremities: Normal Inspection, Normal Range of Motion, Non-Tender, No Pedal Edema, Normal Capillary Refill Skin: Warm, Dry, Intact Neurological: Cranial Nerves Intact, Reflexes Equal Bilateral Neuro Extensive - Mental Status: Alert, Oriented x3, Normal Mood/Affect, Normal Cognition Neuro Extensive - Motor, Sensory, Reflexes: CN II-XII Intact, Normal Gait, Normal Reflexes Psychiatric: Alert, Normal Affect, Normal Mood - Patient Data Lab Results Last 24 hrs: Laboratory Results - last 24 hr 11/20/19 11/20/19 11/20/19 Range/Units 21:43 22:15 22:15 WBC 17.5 H (5.0-10.0) 10^3/uL RBC 4.02 L (4.2-5.4) 10^6/uL Hgb 11.9 L D (12.0-16.0) g/dL Hct 35.4 L (37.0-47.0) % MCV 88.1 D (80-100) fL MCH 29.6 (27.0-34.0) pg MCHC 33.6 (33.0-35.0) g/dL Plt Count 334 (150-450) 10^3/uL Neut % (Auto) 67.4 (42.2-75.2) % Lymph % (Auto) 22.0 (20.5-50.1) % Wolfe % (Auto) 10.2 H (2-8) % Eos % (Auto) 0.3 L (1.0-3.0) % Baso % (Auto) 0.1 (0.0-1.0) % Add Manual Diff Yes Neutrophils % (Manual) 68 (42-75) % Lymphocytes % (Manual) 20 (20-50) % Monocytes % (Manual) 12 H (2-8) % Sodium 132 L (136-145) mmol/L Potassium 3.0 L (3.5-5.1) mmol/L Chloride 95 L (98-107) mmol/L Carbon Dioxide 25 (21-32) mmol/L Anion Gap 15.0 H (7-13) mEq/L BUN 8 (7-18) mg/dL Creatinine 0.97 (0.55-1.02) mg/dL Est Cr Clr Drug Dosing 56.89 mL/min Estimated GFR (MDRD) 59 BUN/Creatinine Ratio 8.2 (No establ ref range) Glucose 128 H (74-99) mg/dL Lactic Acid (0.4-2.0) mmol/L Calcium 7.8 L (8.5-10.1) mg/dL Total Bilirubin 0.6 (0.2-1.0) mg/dL AST 15 (15-37) U/L ALT 25 (14-59) U/L Alkaline Phosphatase 85 (46-116) U/L B-Natriuretic Peptide (0-100) pg/ml Total Protein 7.3 (6.4-8.2) g/dL Albumin 2.9 L (3.4-5.0) g/dL Globulin 4.4 Albumin/Globulin Ratio 0.66 Amylase 9 L (25-115) U/L Lipase 68 L (73-393) U/L Urine Color Yellow (YELLOW) Urine Appearance Cloudy (CLEAR) Urine pH 6.0 (5.0-9.0) Ur Specific Allons 1.015 (1.005-1.030) Urine Protein 100 H (NEGATIVE) Urine Glucose (UA) Negative (NEGATIVE) Urine Ketones Negative (NEGATIVE) Urine Occult Blood Moderate H (NEGATIVE) Urine Nitrite Negative (NEGATIVE) Urine Bilirubin Negative (NEGATIVE) Urine Urobilinogen 1.0 (0.2-1.0) mg/dL Ur Leukocyte Esterase Trace H (NEGATIVE) Urine RBC 5-10 H /HPF Urine WBC 5-10 H (0-5/HPF) /HPF Ur Epithelial Cells Many H (NOT SEEN) /HPF Amorphous Sediment Few (NOT SEEN) /HPF Urine Bacteria Moderate H (0-FEW/HPF) /HPF Urine Mucus Moderate H (NOT SEEN) /LPF 11/20/19 11/20/19 Range/Units 22:15 22:15 WBC (5.0-10.0) 10^3/uL RBC (4.2-5.4) 10^6/uL Hgb (12.0-16.0) g/dL Hct (37.0-47.0) % MCV (80-100) fL MCH (27.0-34.0) pg MCHC (33.0-35.0) g/dL Plt Count (150-450) 10^3/uL Neut % (Auto) (42.2-75.2) % Lymph % (Auto) (20.5-50.1) % Wolfe % (Auto) (2-8) % Eos % (Auto) (1.0-3.0) % Baso % (Auto) (0.0-1.0) % Add Manual Diff Neutrophils % (Manual) (42-75) % Lymphocytes % (Manual) (20-50) % Monocytes % (Manual) (2-8) % Sodium (136-145) mmol/L Potassium (3.5-5.1) mmol/L Chloride (98-107) mmol/L Carbon Dioxide (21-32) mmol/L Anion Gap (7-13) mEq/L BUN (7-18) mg/dL Creatinine (0.55-1.02) mg/dL Est Cr Clr Drug Dosing mL/min Estimated GFR (MDRD) BUN/Creatinine Ratio (No establ ref range) Glucose (74-99) mg/dL Lactic Acid 0.5 (0.4-2.0) mmol/L Calcium (8.5-10.1) mg/dL Total Bilirubin (0.2-1.0) mg/dL AST (15-37) U/L ALT (14-59) U/L Alkaline Phosphatase (46-116) U/L B-Natriuretic Peptide 16 (0-100) pg/ml Total Protein (6.4-8.2) g/dL Albumin (3.4-5.0) g/dL Globulin Albumin/Globulin Ratio Amylase (25-115) U/L Lipase (73-393) U/L Urine Color (YELLOW) Urine Appearance (CLEAR) Urine pH (5.0-9.0) Ur Specific All[place] (1.005-1.030) Urine Protein (NEGATIVE) Urine Glucose (UA) (NEGATIVE) Urine Ketones (NEGATIVE) Urine Occult Blood (NEGATIVE) Urine Nitrite (NEGATIVE) Urine Bilirubin (NEGATIVE) Urine Urobilinogen (0.2-1.0) mg/dL Ur Leukocyte Esterase (NEGATIVE) Urine RBC /HPF Urine WBC (0-5/HPF) /HPF Ur Epithelial Cells (NOT SEEN) /HPF Amorphous Sediment (NOT SEEN) /HPF Urine Bacteria (0-FEW/HPF) /HPF Urine Mucus (NOT SEEN) /LPF Result Diagrams: 11/21/19 07:04 11/21/19 07:04 Problem List Initiated/Reviewed/Updated: Yes Orders Last 24hrs: Active Orders 24 hr Category Date Time Status Admission Diagnosis [ADT] Stat ADT 11/21/19 00:14 Ordered Admission Status [Patient Status] [ADT] Routine ADT 11/21/19 00:14 Active Ambulate [RC] ASDIRECTED Care 11/21/19 00:57 Ordered Cardiac Monitoring [RC] . DIRECTED Care 11/21/19 00:14 Active Height and Weight [RC] DAILY Care 11/21/19 00:57 Ordered Intake and Output [RC] QSHIFT Care 11/21/19 00:59 Ordered Notify Provider Vital Signs [RC] ASDIRECTED Care 11/21/19 00:59 Ordered Oxygen Therapy [RC] PRN Care 11/21/19 00:58 Ordered VTE/DVT Education [RC] PER UNIT ROUTINE Care 11/21/19 00:58 Ordered Vital Signs [RC] Q4H Care 11/21/19 00:58 Ordered Regular Diet [DIET] Diet 11/21/19 Breakfast Ordered Abdomen Pelvis w Cont [CT] Urgent Exams 11/20/19 22:57 Taken CXR [Chest 1V Frontal] [CR] Urgent Exams 11/20/19 21:38 Taken BASIC METABOLIC PANEL,BMP [CHEM] DAILY Lab 11/21/19 07:00 Ordered BASIC METABOLIC PANEL,BMP [CHEM] DAILY Lab 11/22/19 07:00 Ordered BASIC METABOLIC PANEL,BMP [CHEM] DAILY Lab 11/23/19 07:00 Ordered CBC W/O DIFF,HEMOGRAM [HEME] DAILY Lab 11/21/19 07:00 Ordered CBC W/O DIFF,HEMOGRAM [HEME] DAILY Lab 11/22/19 07:00 Ordered CBC W/O DIFF,HEMOGRAM [HEME] DAILY Lab 11/23/19 07:00 Ordered CBC W/O DIFF,HEMOGRAM [HEME] DAILY Lab 11/24/19 07:00 Ordered CULTURE BLOOD [BC] Stat Lab 11/20/19 22:10 Received CULTURE BLOOD [BC] Stat Lab 11/20/19 22:15 Received CULTURE URINE [RM] Stat Lab 11/20/19 21:43 Received MAGNESIUM [CHEM] Routine Lab 11/21/19 00:57 Ordered PHOSPHORUS [CHEM] Routine Lab 11/21/19 00:57 Ordered Acetaminophen [Tylenol] Med 11/21/19 00:57 Ordered 650 mg PO Q4H PRN Docusate Sodium [Colace] Med 11/21/19 00:57 Ordered 100 mg PO BID PRN Enoxaparin [Lovenox] Med 11/21/19 09:00 Ordered 40 mg SUBCUT DAILY Magnesium Hydroxide [Milk of Magnesia] Med 11/21/19 00:57 Ordered 30 ml PO Q12H PRN Ondansetron [Zofran] Med 11/21/19 00:57 Ordered 4 mg IVPUSH Q6H PRN Piperacillin/Tazobactam [Zosyn] 3.375 gm Med 11/21/19 01:15 Ordered Sodium Chloride 0.9% [Normal Saline] 100 ml IV Q6H Sodium Chloride 0.9% @ 125 MLS/HR (1000ml) Med 11/21/19 01:00 Ordered Sodium Chloride 0.9% [Normal Saline] 1,000 ml IV ASDIRECTED Blood Culture x2 Reflex Set [OM.PC] Stat Oth 11/20/19 21:38 Ordered Resuscitation Status Routine Resus Stat 11/21/19 00:57 Ordered Medication Orders Acetaminophen (Tylenol) 650 mg PO Q4H PRN PRN Reason: Pain (Mild 1-3)/fever Docusate Sodium (Colace) 100 mg PO BID PRN PRN Reason: Constipation Enoxaparin Sodium (Lovenox) 40 mg SUBCUT DAILY URIEL Sodium Chloride (Normal Saline) 1,000 mls @ 125 mls/hr IV ASDIRECTED URIEL Piperacillin Sod/Tazobactam (Sod 3.375 gm/ Sodium Chloride) 100 mls @ 200 mls/ hr IV Q6H URIEL Magnesium Hydroxide (Milk Of Magnesia) 30 ml PO Q12H PRN PRN Reason: Constipation Ondansetron HCl (Zofran) 4 mg IVPUSH Q6H PRN PRN Reason: Nausea/Vomiting Assessment/Plan Comment:: #Pyelonephritis -Patient presented for evaluation of abdominal pain associated nausea and poor appetite -She reports on and off -Bilateral costophrenic angle tenderness on exam -Abdominal CT concerning for pyelonephritis -Admitted to medical for -Monitor vitals -IVF -Blood cx x 2 -Urine cx -IV Zosyn #Probable sepsis -IVF -IV abx as above #Acute Diverticulitis as per CT abdomen finding -Patient started on Zosyn. Continue #Hypokalemia -Replace IV #Immunosuppressed patient -[place]ed[place] plaque on the in July -We'll monitor vitals closely -Old medication for now in the setting of infection #HTN -BP within is obtainable limits -Continue home medications #Hyperlipidemia -Continue home medications #Carbohydrate consistent diet #Full code
[2019-11-21] MEDS ORDERED: Zolpidem 5 MG Tab PO ONE (02:00)
[2019-11-21] MEDS: Potassium Chloride 10 MEQ in Premix Bag 1 BAG IV SCH ×2 (02:00→03:59)
[2019-11-21] MEDS: Sodium Chloride 0.9% 1,000 ML IV SCH ×3 (06:14→23:22)
[2019-11-21] MEDS: Omeprazole 20 MG Cap.CR PO SCH ×2 (06:14→15:19)
[2019-11-21] MEDS ORDERED: Piperacillin/Tazobactam 3.375 GM in Sodium Chloride 0.9% 100 ML IV SCH (07:00)
[2019-11-21 07:34] LABS: ANION GAP 14.4 mEq/L (7-13); CHLORIDE,CL 101 mmol/L (98-107); SODIUM,NA 139 mmol/L (136-145)
[2019-11-21] MEDS: Losartan 25 MG Tab PO SCH (08:13)
[2019-11-21] MEDS: Enoxaparin 40 MG/0.4 ML Syringe SUBCUT SCH (08:13)
[2019-11-21] MEDS: Aspirin 81 MG Tab.EC PO SCH (08:13)
[2019-11-21] MEDS: Hydroxychloroquine 200 MG Tab PO SCH ×2 (08:13→22:04)
[2019-11-21] MEDS: Propranolol 60 MG Cap.ER PO SCH (08:13)
[2019-11-21] MEDS: DULoxetine 30 MG Cap PO SCH (08:13)
[2019-11-21] MEDS ORDERED: atorvaSTATin 10 MG Tab PO SCH (09:00)
[2019-11-21] MEDS ORDERED: Magnesium Sulfate/D5W 2 GM in Premix Bag 1 BAG IV ONE (11:06)
[2019-11-21] MEDS: Piperacillin/Tazobactam 3.375 GM in Sodium Chloride 0.9% 100 ML IV SCH ×3 (13:41→23:34)
[2019-11-21] MEDS: Potassium Chloride 10 MEQ Tab.ER PO SCH ×2 (13:41→17:59)
[2019-11-21] MEDS ORDERED: Potassium Chloride 10% 20 MEQ/15 ML Soln 15 ML UD Cup PO SCH (18:00)
[2019-11-21] MEDS ORDERED: rOPINIRole 0.25 MG Tab PO PRN (19:30)
[2019-11-21] MEDS ORDERED: Simethicone 80 MG Tab.Chew PO PRN (19:31)
[2019-11-21] MEDS ORDERED: Zolpidem 5 MG Tab PO SCH (21:00)
[2019-11-22] MEDS: Piperacillin/Tazobactam 3.375 GM in Sodium Chloride 0.9% 100 ML IV SCH ×2 (05:56→13:19)
[2019-11-22] MEDS: Omeprazole 20 MG Cap.CR PO SCH (06:00)
[2019-11-22 07:11] LABS: ANION GAP 15.2 mEq/L (7-13); CHLORIDE,CL 105 mmol/L (98-107); SODIUM,NA 140 mmol/L (136-145)
[2019-11-22 07:50] VITALS: BP 111/60; PULSE 59
[2019-11-22] MEDS: Sodium Chloride 0.9% 1,000 ML IV SCH (08:11)
[2019-11-22] MEDS: Potassium Chloride 10 MEQ Tab.ER PO SCH (08:48)
[2019-11-22] MEDS: Losartan 25 MG Tab PO SCH (08:50)
[2019-11-22] MEDS: DULoxetine 30 MG Cap PO SCH (08:50)
[2019-11-22] MEDS: Aspirin 81 MG Tab.EC PO SCH (08:51)
[2019-11-22] MEDS: Propranolol 60 MG Cap.ER PO SCH (08:51)
[2019-11-22] MEDS: Enoxaparin 40 MG/0.4 ML Syringe SUBCUT SCH (08:52)
[2019-11-22] MEDS: Hydroxychloroquine 200 MG Tab PO SCH (08:52)
--- NOTE | 2019-11-22 11:14 | PCM.DCSUM1 ---
Discharge Summary - Hospital Course Free Text/Narrative:: Gladis Car is a 59-year-old female who presented to the ED for evaluation of abdominal pain, low appetite with poor oral intake. Her past medical history significant for hypertension, hyperlipidemia Rheumatoid arthritis on Plaquinel and Enbrel. As per patient she is bee having abdominal pain for the past 5 to 6 days. Abdominal pain is generalized, sharp in nature, about 7/10 in severity with no relieving or aggravating factors. It is non radiating and not related to meals. It is accompanied by nausea without vomiting. Her appetite has been low and as a result has not been able to eat anything. She reported weakness and off fever chills. Had fever of 102 F prior to presentation. CT abd/Pel was concerning for pyelonephritis vs diverticulosis. She was admitted for pyelonephritis and started on IV Zosyn and IVF. Blood culture was negative. Urine culture report mixed organism likely contaminant. She responded very well to IV antibiotics. Overall symptoms improved. Her leukocytosis resolved. She has not had any fever or chills. She was discharged home in stable condition with plan to follow-up with PCP. Diagnosis: Stroke: No - Discharge Data Discharge Date: 11/22/19 Discharge Disposition: Home, Self-Care 01 Condition: Good - Referral to Home Health Primary Care Physician: PCP None - Patient Instructions Diet: Usual Diet as Tolerated Activity: As Tolerated Driving: May Drive Today Showering/Bathing: May Shower Notify Provider of: Fever, Nausea and/or Vomiting - Discharge Plan *PRESCRIPTION DRUG MONITORING PROGRAM REVIEWED*: No *COPY OF PRESCRIPTION DRUG MONITORING REPORT IN PATIENT MONIQUE: No Prescriptions/Med Rec: Levofloxacin [Levaquin] 750 mg PO DAILY #7 tablet Simethicone 80 mg PO Q4H PRN #30 tab.chew PRN Reason: Gas Home Medications: Home Meds Omeprazole [Prilosec] 20 mg PO BID 11/19/13 [History] Hydroxychloroquine [Plaquenil] 200 mg PO BID 06/27/14 [History] Aspirin [Adult Low Dose Aspirin EC] 81 mg PO DAILY 01/24/17 [History] Ibuprofen 800 mg PO Q6HR PRN 01/24/17 [History] DULoxetine HCl [Duloxetine HCl] 60 mg PO DAILY 06/02/18 [History] Etanercept [Enbrel] 50 mg SUBCUT WEEKLY 05/15/19 [History] Losartan [Cozaar] 25 mg PO DAILY 05/15/19 [History] Propranolol HCl [Propranolol] 120 mg PO DAILY 05/15/19 [History] SUMAtriptan [Imitrex] 50 mg PO ASDIRECTED PRN 05/15/19 [History] atorvaSTATin [Lipitor] 10 mg PO DAILY 05/15/19 [History] Levofloxacin [Levaquin] 750 mg PO DAILY #7 tablet 11/22/19 [Rx] Simethicone 80 mg PO Q4H PRN #30 tab.chew 11/22/19 [Rx] Oxygen Therapy Mode: Room Air Referrals: Priti Mckeon NP [Ordering Only Provider] - PCP,None [Primary Care Provider] - - Discharge Summary/Plan Comment DC Time >30 min.: Yes Discharge Summary/Plan Comment: Complete antibiotics - General Info Date of Service: 11/22/19 Functional Status: Reports: Pain Controlled - Review of Systems General: Reports: No Symptoms HEENT: Reports: No Symptoms Pulmonary: Reports: No Symptoms Cardiovascular: Reports: No Symptoms Gastrointestinal: Reports: No Symptoms Genitourinary: Reports: No Symptoms Musculoskeletal: Reports: No Symptoms Skin: Reports: No Symptoms Neurological: Reports: No Symptoms Psychiatric: Reports: No Symptoms - Patient Data Vitals - Most Recent: Last Vital Signs Temp 96.9 F 11/22/19 07:49 Pulse 59 L 11/22/19 07:49 Resp 18 11/22/19 07:49 BP 111/60 11/22/19 08:50 Pulse Ox 97 11/22/19 07:49 Weight - Most Recent: 272 lb 12.8 oz I&O - Last 24 hours: Intake & Output 11/21/19 11/22/19 11/22/19 22:59 06:59 14:59 Intake Total 1198 1244 613 Output Total 7144 1900 Balance -302 -886 613 Lab Results - Last 24 hrs: Laboratory Results - last 24 hr 11/22/19 11/22/19 11/22/19 Range/Units 06:25 06:25 06:25 WBC 9.3 (5.0-10.0) 10^3/uL RBC 3.81 L (4.2-5.4) 10^6/uL Hgb 11.2 L (12.0-16.0) g/dL Hct 34.0 L (37.0-47.0) % MCV 89.2 (80-100) fL MCH 29.4 (27.0-34.0) pg MCHC 32.9 L (33.0-35.0) g/dL Plt Count 393 (150-450) 10^3/uL Sodium 140 (136-145) mmol/L Potassium 4.2 (3.5-5.1) mmol/L Chloride 105 (98-107) mmol/L Carbon Dioxide 24 (21-32) mmol/L Anion Gap 15.2 H (7-13) mEq/L BUN 5 L (7-18) mg/dL Creatinine 0.73 (0.55-1.02) mg/dL Est Cr Clr Drug Dosing 75.59 mL/min Estimated GFR (MDRD) > 60 Glucose 113 H (74-99) mg/dL Calcium 7.4 L (8.5-10.1) mg/dL Magnesium 2.0 (1.8-2.4) mg/dL AFSHIN Results - Last 24 hrs: Microbiology 11/20/19 21:43 Urine Culture - Preliminary Urine, Voided 11/20/19 22:10 Aerobic Blood Culture - Preliminary Blood - Venous NO GROWTH AFTER 1 DAY Anaerobic Blood Culture - Preliminary NO GROWTH AFTER 1 DAY 11/20/19 22:15 Aerobic Blood Culture - Preliminary Blood - Venous - Lab Draw NO GROWTH AFTER 1 DAY Anaerobic Blood Culture - Preliminary NO GROWTH AFTER 1 DAY Med Orders - Current: Current Medications Acetaminophen (Tylenol) 650 mg PO Q4H PRN PRN Reason: Pain (Mild 1-3)/fever Aspirin (Halfprin) 81 mg PO DAILY ON LICENSE OF [facility] Last Admin: 11/22/19 08:51 Dose: 81 mg Atorvastatin Calcium (Lipitor) 10 mg PO DAILY ON LICENSE OF [facility] Docusate Sodium (Colace) 100 mg PO BID PRN PRN Reason: Constipation Duloxetine HCl (Cymbalta) 60 mg PO DAILY ON LICENSE OF [facility] Last Admin: 11/22/19 08:50 Dose: 60 mg Enoxaparin Sodium (Lovenox) 40 mg SUBCUT DAILY ON LICENSE OF [facility] Last Admin: 11/22/19 08:52 Dose: 40 mg Hydroxychloroquine Sulfate (Plaquenil) 200 mg PO BID ON LICENSE OF [facility] Last Admin: 11/22/19 08:52 Dose: 200 mg Sodium Chloride (Normal Saline) 1,000 mls @ 125 mls/hr IV ASDIRECTED ON LICENSE OF [facility] Last Admin: 11/22/19 08:11 Dose: 125 mls/hr Piperacillin Sod/Tazobactam (Sod 3.375 gm/ Sodium Chloride) 100 mls @ 200 mls/ hr IV Q6HR ON LICENSE OF [facility] Last Infusion: 11/22/19 06:30 Dose: Infused Losartan Potassium (Cozaar) 25 mg PO DAILY ON LICENSE OF [facility] Last Admin: 11/22/19 08:50 Dose: 25 mg Magnesium Hydroxide (Milk Of Magnesia) 30 ml PO Q12H PRN PRN Reason: Constipation Non-Formulary Medication (Sumatriptan [Imitrex]) 50 mg PO ASDIRECTED PRN PRN Reason: migraine Omeprazole (Omeprazole) 20 mg PO BIDAC ON LICENSE OF [facility] Last Admin: 11/22/19 06:00 Dose: 20 mg Ondansetron HCl (Zofran) 4 mg IVPUSH Q6H PRN PRN Reason: Nausea/Vomiting Potassium Chloride (Klor-Con 10) 40 meq PO BIDMEALS ON LICENSE OF [facility] Last Admin: 11/22/19 08:48 Dose: 40 meq Propranolol HCl (Inderal La) 120 mg PO DAILY ON LICENSE OF [facility] Last Admin: 11/22/19 08:51 Dose: 120 mg Ropinirole HCl (Requip) 0.25 mg PO BEDTIME PRN PRN Reason: Other Last Admin: 11/21/19 19:59 Dose: 0.25 mg Simethicone (Simethicone) 80 mg PO Q4H PRN PRN Reason: Gas Last Admin: 11/21/19 19:59 Dose: 80 mg Zolpidem Tartrate (Ambien) 5 mg PO BEDTIME ON LICENSE OF [facility] Last Admin: 11/21/19 22:04 Dose: 5 mg Discontinued Medications Potassium Chloride 10 meq/ (Premix) 100 mls @ 100 mls/hr IV ONETIME ONE Stop: 11/21/19 00:56 Last Admin: 11/21/19 00:11 Dose: 100 mls/hr Piperacillin Sod/Tazobactam (Sod 3.375 gm/ Sodium Chloride) 100 mls @ 200 mls/ hr IV ONETIME ONE Stop: 11/21/19 00:31 Last Admin: 11/21/19 01:19 Dose: 200 mls/hr Piperacillin Sod/Tazobactam (Sod 3.375 gm/ Sodium Chloride) 100 mls @ 200 mls/ hr IV Q6H URIEL Last Admin: 11/21/19 08:12 Dose: 200 mls/hr Piperacillin Sod/Tazobactam (Sod 3.375 gm/ Sodium Chloride) 100 mls @ 200 mls/ hr IV ONETIME ONE Stop: 11/21/19 01:59 Last Admin: 11/21/19 01:46 Dose: Not Given Potassium Chloride 10 meq/ (Premix) 100 mls @ 100 mls/hr IV Q2H URIEL Stop: 11/21/19 04:59 Last Admin: 11/21/19 03:59 Dose: 100 mls/hr Magnesium Sulfate/Dextrose 2 (gm/ Premix) 200 mls @ 100 mls/hr IV ONETIME ONE Stop: 11/21/19 13:05 Last Admin: 11/21/19 11:19 Dose: 100 mls/hr Iopamidol (Isovue-300 (61%)) 100 ml IVPUSH ONETIME ONE Stop: 11/20/19 22:59 Last Admin: 11/20/19 23:36 Dose: 100 ml Zolpidem Tartrate (Ambien) 5 mg PO ONETIME ONE Stop: 11/21/19 02:01 Last Admin: 11/21/19 02:03 Dose: 5 mg - Exam General: Reports: Alert, Oriented HEENT: Reports: Pupils Equal, Pupils Reactive, EOMI, Mucous Membr. Moist/[place] Neck: Reports: Supple Lungs: Reports: Clear to Auscultation, Normal Respiratory Effort Cardiovascular: Reports: Regular Rate, Regular Rhythm GI/Abdominal Exam: Normal Bowel Sounds, Soft, Non-Tender, No Organomegaly, No Distention, No Abnormal Bruit, No Mass, Pelvis Stable (Female) Exam: Normal External Exam, Normal Speculum Exam, Normal Bimanual Exam Rectal (Female) Exam: Normal Exam, Normal Rectal Tone Back Exam: Reports: Normal Inspection, Full Range of Motion Extremities: Normal Inspection, Normal Range of Motion, Non-Tender, No Pedal Edema, Normal Capillary Refill Skin: Reports: Warm, Dry, Intact Wound/Incisions: Reports: Healing Well Neurological: Reports: No New Focal Deficit Psy/Mental Status: Reports: Alert, Normal Affect, Normal Mood
== END 2019-11-22 12:45 | disposition home or self-care (01) | DRG 872 ==
LOC: DL.ED 21:25 → DL.MS 11-21 00:14
PROVIDERS: ADMIT Student in an Organized Health Care Education/Training Program; ATTEND Student in an Organized Health Care Education/Training Program
DX: A41.9 Sepsis, unspecified organism (principal); N12 Tubulo-interstitial nephritis, not specified as acute or chronic; K57.92 Diverticulitis of intestine, part unspecified, without perforation or abscess without bleeding; E87.6 Hypokalemia; D84.9 Immunodeficiency, unspecified; E78.5 Hyperlipidemia, unspecified; E78.00 Pure hypercholesterolemia, unspecified; M06.9 Rheumatoid arthritis, unspecified; D89.9 Disorder involving the immune mechanism, unspecified; F17.210 Nicotine dependence, cigarettes, uncomplicated; I10 Essential (primary) hypertension; K21.9 Gastro-esophageal reflux disease without esophagitis; E11.9 Type 2 diabetes mellitus without complications; F17.200 Nicotine dependence, unspecified, uncomplicated; Z90.49 Acquired absence of other specified parts of digestive tract; Z79.82 Long term (current) use of aspirin; Z79.899 Other long term (current) drug therapy
CPT/HCPCS: 36415; 71045; 74177; 80053; 81001; 82150; 83605; 83690; 83880; 85025; 87040 ×2; 87086; 99284; 99285; J3480; Q9967; 80048; 83735; 84100; 85027; A9270-GY; J1650; J2543; J3475; J7030; J7050

== ENCOUNTER 2020-08-31 06:35 | Day surgery (SDC) | payer MEDICARE, OTHER ==
[~2020-08-31 06:35] MED LIST: Dextrose 5%-0.45% NaCl 1,000 ML IV SCH; Midazolam 1 MG/ML 2 ML SDV ONE; Sodium Chloride 0.9% 10 ML Syringe FLUSH PRN; fentaNYL 100 MCG/2 ML SDV ONE
[2020-08-31] MEDS ORDERED: fentaNYL 100 MCG/2 ML SDV IV ONE ×3 (06:36→07:23)
[2020-08-31] MEDS ORDERED: Midazolam 1 MG/ML 2 ML SDV IV ONE ×3 (06:36→07:24)
--- NOTE | 2020-08-31 10:37 | OR ---
DATE: 08/31/2020 PROCEDURES: Esophagogastroduodenoscopy and multiple pinch biopsies. INSTRUMENT USED: GIF-HQ190 Olympus video panendoscope. PREMEDICATIONS: No oral or topical anesthesia used. Fentanyl 100 mcg intravenous, Versed 2 mg intravenous, nasal O2 cannula. The procedure was done under pulse oximetry, BP recording, and grades 7 and 8 teacher. INDICATION: The patient with persistent abdominal pain and bloating, unexplained and not responsive to medical measures, diabetic, on multiple medications. Esophagogastroduodenoscopy is performed for detection of any active erosive lesions, Hutchins esophagus and/or malignancy also under consideration, H pylori status to be determined, small bowel biopsies to be obtained for celiac disease if indicated. Endoscopic hemostasis therapy if needed. PROCEDURE IN DETAIL: The scope was passed with ease. Adequate visualization of the esophagus was made from proximal to distal areas. No upper esophageal lesions identified. No distal esophageal stricture. No uphill or downhill esophageal varices. No Rebekah-Cortez tear. No evidence of erosive esophagitis by Wexford criteria. No esophageal polyp or tumor mass identified. Z-line was seen at around 39 cm distal to the oral verge. Non-constricting Schatzki's ring was noted. No proximal gastric varices noted. Gastric fundus examination by retroflexion showed no polypoid lesions. No gastric ulcer, malignant mass, or vascular ectasia identified. Duodenal bulb showed no ulcer. Visualized second part of the duodenum was unremarkable. Multiple pinch biopsies, 4 in number, were taken from different areas of the second part of the duodenum and tissues were also obtained from the duodenal bulb at 9 and 12 o'clock positions and sent for any histopathologic evidence of celiac disease. Multiple pinch biopsies were also obtained from the gastric antrum and proximal body and sent for PyloriTek test for H pylori and histopathology. No bleeding was noted from any of the visualized areas at the completion of examination. Photographs were taken of the duodenal bulb, gastric antrum, fundus, and distal esophagus. IMPRESSION: Non-constricting Schatzki's ring. The patient tolerated the procedure well. [facility] /[id number]
[2020-08-31 10:52] VITALS: BP 150/90; PULSE 64
--- NOTE | 2020-08-31 13:31 | LETTER ---
08/31/2020 RE: MALATHI ROMAN : 1960 [address] [place] [address] Dear Sebastian Singhbrisarah: Ms. Malathi Roman had esophagogastroduodenoscopy done this morning, and she tolerated the procedure well. I herewith send a copy of the endoscopy note and photographs for your review. Thank you, Sincerely, [facility] /[id number]
== END 2020-08-31 09:40 | disposition home or self-care (01) ==
LOC: DL.ENDO 06:35
PROVIDERS: ATTEND Internal Medicine Gastroenterology
DX: K31.89 Other diseases of stomach and duodenum (principal); K22.2 Esophageal obstruction; Z79.899 Other long term (current) drug therapy
CPT/HCPCS: 87077; J2250; J3010; J7042

== ENCOUNTER 2020-09-01 05:57 | Day surgery (SDC) | payer MEDICARE, OTHER ==
[2020-09-01] MEDS ORDERED: fentaNYL 100 MCG/2 ML SDV IV ONE ×7 (05:58→07:14)
[2020-09-01] MEDS ORDERED: Midazolam 1 MG/ML 2 ML SDV IV ONE ×7 (05:58→06:43)
[2020-09-01] MEDS ORDERED: Midazolam 1 MG/ML 2 ML SDV ONE (06:11)
[2020-09-01] MEDS ORDERED: fentaNYL 100 MCG/2 ML SDV ONE (06:12)
[2020-09-01] MEDS ORDERED: Dextrose 5%-0.45% NaCl 1,000 ML IV SCH (06:15)
--- NOTE | 2020-09-01 09:25 | OR ---
DATE: 09/01/2020 PROCEDURE: Total colonoscopy, narrow-band imaging, and multiple cold snare polypectomies and biopsies. INSTRUMENT USED: PCF-H190DL Olympus video colonoscope. PREMEDICATIONS: Fentanyl 200 mcg intravenous, Versed 4 mg intravenous. Nasal O2 cannula. The procedure was done under pulse oximetry, BP recording, and monitor and storage bin tender. INDICATION: The patient with chronic diarrhea, unexplained, and not responsive to medical measures. Diabetic, on multiple medications. Colonoscopic examination is done for detection of any polypoid lesions and removal, biopsies to be obtained for any evidence of microscopic colitis, endoscopic hemostasis therapy if needed. DESCRIPTION OF PROCEDURE: Initial rectal exam showed external hemorrhoidal tags. Rigid anoscopy showed small internal hemorrhoids without bleeding from them. The colonoscope was passed with ease. Numerous scattered diverticula were noted, more so in the distal left colon along with some deformity. The scope was passed with relative ease up to the ileocecal area. Photographs taken of the cecum identified by appendiceal orifice and thin lipped ileocecal valve that prevented further advancement to visualize the terminal ileum. Diminutive benign-appearing polyps were noted in the mid rectum, distal descending colon as well as around the ileocecal valve. NBI views were taken. Photographs were obtained. Cold snare polypectomies were done, and the tissues were retrieved and sent for histopathology. In the distal ascending colon, 5 mm sized benign- appearing polyp was noted, cold snare polypectomy was done, and the tissue was retrieved and sent for histopathology. No bleeding was noted from any of the visualized areas at the commencement of the examination. The bowel preparation was scale 2 in all the regions by [place] Scale, total score 6. No stricture, no vascular ectasia, no large isolated ulcerations seen, no evidence of diffuse inflammatory bowel disease in the form of friability, contact bleeding, or ulcerations. Probing the proximal sides of folds and flexures using adequate distention and clearing up the stool material, withdrawal of the scope was made. There was some amount of solid fecal material obscuring view of some of the areas. Multiple pinch biopsies were taken from the normal-appearing mucosa of the mid transverse colon, mid descending colon, and rectosigmoid, and sent for any evidence of microscopic colitis. No bleeding was noted from any of the visualized areas at the completion of examination. IMPRESSION: 1. External and internal hemorrhoids. 2. Diverticulosis. 3. Multiple polyps. The patient tolerated the procedure well. [facility] /[id number]
[2020-09-01 10:18] VITALS: BP 121/49; PULSE 59
--- NOTE | 2020-09-01 11:33 | LETTER ---
09/01/2020 RE: MALATHI ROMAN : 1960 [address] Cha [address] [place] [address] Dear Sebastian Cha: Ms. Malathi Roman had colonoscopy examination done this morning, and she tolerated the procedure well. I herewith send a copy of the endoscopy note and photographs for your review. Thank you, Sincerely, [facility] /[id number]
== END 2020-09-01 09:36 | disposition home or self-care (01) ==
LOC: DL.ENDO 05:57
PROVIDERS: ATTEND Internal Medicine Gastroenterology
DX: D12.4 Benign neoplasm of descending colon (principal); D12.2 Benign neoplasm of ascending colon; D12.0 Benign neoplasm of cecum; K62.1 Rectal polyp; E11.9 Type 2 diabetes mellitus without complications; K52.9 Noninfective gastroenteritis and colitis, unspecified; K64.4 Residual hemorrhoidal skin tags; K57.30 Diverticulosis of large intestine without perforation or abscess without bleeding; K64.8 Other hemorrhoids; F17.210 Nicotine dependence, cigarettes, uncomplicated; E66.09 Other obesity due to excess calories; M06.9 Rheumatoid arthritis, unspecified; K44.9 Diaphragmatic hernia without obstruction or gangrene; Z90.49 Acquired absence of other specified parts of digestive tract
CPT/HCPCS: 88305; J2250; J3010; J7042

== ENCOUNTER 2020-11-05 15:51 | Emergency (ER) | payer MEDICARE, OTHER ==
[2020-11-05] MEDS ORDERED: Sodium Chloride 0.9% 10 ML Syringe FLUSH PRN (16:31)
[2020-11-05] MEDS ORDERED: Ondansetron 4 MG/2 ML SDV IV ONE (16:32)
[2020-11-05] MEDS ORDERED: Sodium Chloride 0.9% 1,000 ML IV ONE (16:32)
[2020-11-05] MEDS ORDERED: Ketorolac 30 MG/ML SDV IVPUSH ONE (16:33)
[2020-11-05 16:37] VITALS: BP 126/67; PULSE 79
[2020-11-05 17:10] LABS: ANION GAP 14.4 mEq/L (7-13); CHLORIDE,CL 106 mmol/L (98-107); SODIUM,NA 142 mmol/L (136-145)
--- NOTE | 2020-11-05 17:49 | CT ---
PROCEDURE INFORMATION: Exam: CT Abdomen And Pelvis Without Contrast Exam date and time: 11/05/2020 5:26 PM Age: 60 years old Clinical indication: Abdominal pain; Flank; Right; Additional info: RT flank pain TECHNIQUE: Imaging protocol: Computed tomography of the abdomen and pelvis without contrast. Radiation optimization: All CT scans at this facility use at least one of these dose optimization techniques: automated exposure control; mA and/or kV adjustment per patient size (includes targeted exams where dose is matched to clinical indication); or iterative reconstruction. COMPARISON: CT Abdomen Pelvis w Cont 08/11/2020 10:24 AM FINDINGS: Liver: Normal. No mass. Gallbladder and bile ducts: Gallbladder surgically absent. Pancreas: Normal. No ductal dilation. Spleen: Normal. No splenomegaly. Adrenal glands: Normal. No mass. Kidneys and ureters: Normal. No hydronephrosis. Stomach and bowel: Unremarkable. No obstruction. No mucosal thickening. Appendix: No evidence of appendicitis. Intraperitoneal space: Unremarkable. No free air. No significant fluid collection. Vasculature: Unremarkable. No abdominal aortic aneurysm. Lymph nodes: Unremarkable. No enlarged lymph nodes. Urinary bladder: Unremarkable as visualized. Reproductive: Fibroid uterus again noted. Bones/joints: Unremarkable. No acute fracture. Soft tissues: Unremarkable. IMPRESSION: No acute findings.
--- NOTE | 2020-11-05 17:53 | EDM.PDOC ---
"Scribed by Divina Koehler 11/05/20 [id number] for Velia Barnett MD ED HPI GENERAL MEDICAL PROBLEM - General Chief Complaint: Genitourinary Problem Stated Complaint: RIGHT SIDE, POSSIBLE KIDNEY STONE Time Seen by Provider: 11/05/20 16:25 Source of Information: Reports: Patient, RN, RN Notes Reviewed, Other (records from [facility]) History Limitations: Reports: No Limitations - History of Present Illness INITIAL COMMENTS - FREE TEXT/NARRATIVE: Patient presents to ED by POV stating that she has had 2 weeks of right flank pain. She went to the clinic and they could not find anything. The pain has been fairly constant over the past 2 weeks, worse today. It does not radiate. Denies lifting injury or fall. Denies fever, chills or dysuria. Onset: Gradual Duration: Constant Location: Reports: Other (flank) Quality: Reports: Ache Severity: Severe Improves with: Reports: None Worsens with: Reports: None Associated Symptoms: Reports: No Other Symptoms Right Middle Abdomen Pain Score (Numeric/FACES): 6 - Related Data Allergies Allergy/AdvReac Type Severity Reaction Status Date / Time No Known Allergies Allergy Verified 09/01/20 06:06 Home Meds: Home Meds Omeprazole [Prilosec] 20 mg PO BID 11/19/13 [History] Hydroxychloroquine [Plaquenil] 200 mg PO BID 06/27/14 [History] Aspirin [Adult Low Dose Aspirin EC] 81 mg PO DAILY 01/24/17 [History] DULoxetine HCl [Duloxetine HCl] 60 mg PO DAILY 06/02/18 [History] Etanercept [Enbrel] 50 mg SUBCUT WEEKLY 05/15/19 [History] Losartan [Cozaar] 25 mg PO DAILY 05/15/19 [History] SUMAtriptan [Imitrex] 50 mg PO ASDIRECTED PRN 05/15/19 [History] atorvaSTATin [Lipitor] 10 mg PO DAILY 05/15/19 [History] Simethicone 80 mg PO Q4H PRN #30 tab.chew 11/22/19 [Rx] Folic Acid 1 mg PO DAILY 08/26/20 [History] Lidocaine 5% [Lidoderm 5%] 1 patch TOP DAILY PRN 08/26/20 [History] Topiramate 100 mg PO BID 08/26/20 [History] metFORMIN [Glucophage] 500 mg PO BIDMEALS 08/26/20 [History] Past Medical History HEENT History: Reports: None Cardiovascular History: Reports: High Cholesterol, Hypertension Respiratory History: Reports: Sleep Apnea Gastrointestinal History: Reports: Colon Polyp, Diverticulosis, GERD, Hemorrhoids, Hiatal Hernia Genitourinary History: Reports: UTI, Recurrent ORAL PATHOLOGIST History: Reports: , Spontaneous Musculoskeletal History: Reports: Arthritis, Fracture, Fibromyalgia, RA, Other (See Below) Other Musculoskeletal History: left knee needs surgery. CARPAL TUNNEL SYNDROME BILAT Neurological History: Reports: Migraines, Neuropathy, Peripheral Psychiatric History: Reports: Depression Endocrine/Metabolic History: Reports: Diabetes, Type II, Obesity/BMI 30+ Hematologic History: Reports: None Immunologic History: Reports: None Oncologic (Cancer) History: Reports: None Dermatologic History: Reports: None - Infectious Disease History Infectious Disease History: Reports: None - Past Surgical History Head Surgeries/Procedures: Reports: None HEENT Surgical History: Reports: Eye Surgery Cardiovascular Surgical History: Reports: None Respiratory Surgical History: Reports: None GI Surgical History: Reports: Appendectomy, Cholecystectomy, Colonoscopy, Polypectomy Female Surgical History: Reports: Salpingo-Oophorectomy Neurological Surgical History: Reports: None Musculoskeletal Surgical History: Reports: ORIF, Other (See Below) Other Musculoskeletal Surgeries/Procedures:: fx arm Social & Family History - Family History Family Medical History: No Pertinent Family History - Caffeine Use Caffeine Use: Reports: Coffee Caffeine Use Comment: 2 cps daily - Living Situation & Occupation Living situation: Reports: with Family Occupation: Employed ED ROS GENERAL - Review of Systems Review Of Systems: Comprehensive ROS is negative, except as noted in HPI. ED EXAM, RENAL/ - Physical Exam Exam: See Below Exam Limited By: No Limitations General Appearance: Alert, WD/WN, No Apparent Distress Eye Exam: Bilateral Eye: Normal Inspection Nose: Normal Inspection Throat/Mouth: Normal Inspection, Normal Voice, No Airway Compromise Head: Atraumatic, Normocephalic Neck: Normal Inspection Respiratory/Chest: No Respiratory Distress, Lungs Clear, Normal Breath Sounds, No Accessory Muscle Use, Chest Non-Tender Cardiovascular: Regular Rate, Rhythm, No Edema GI/Abdominal: Normal Bowel Sounds, Soft, No Organomegaly, No Distention, No Abnormal Bruit, No Mass, Tender (Increased Rt flank pain with right sided abdominal palpation) Back Exam: Full Range of Motion, CVA Tenderness (R), Paraspinal Tenderness (Rt lumbar). No: CVA Tenderness (L), Vertebral Tenderness Extremities: Normal Inspection Neurological: Alert, Oriented, No Motor/Sensory Deficits Psychiatric: Normal Mood Skin Exam: Warm, Dry, Intact, Normal Color, No Rash Course - Vital Signs Last Recorded V/S: Last Vital Signs Temp 97.7 F 11/05/20 16:30 Pulse 79 11/05/20 16:30 Resp 16 11/05/20 16:30 BP 126/67 11/05/20 16:30 Pulse Ox 100 11/05/20 16:30 - Orders/Labs/Meds Orders: Active Orders 24 hr Category Date Time Status Peripheral IV Care [RC] . DIRECTED Care 11/05/20 16:31 Active Sodium Chloride 0.9% [Saline Flush] Med 11/05/20 16:31 Active 10 ml FLUSH ASDIRECTED PRN Peripheral IV Insertion Adult [OM.PC] Stat Oth 11/05/20 16:31 Ordered Labs: Laboratory Tests 11/05/20 11/05/20 11/05/20 Range/Units 16:45 16:45 17:09 WBC 7.5 (5.0-10.0) 10^3/uL RBC 4.67 (4.2-5.4) 10^6/uL Hgb 14.0 D (12.0-16.0) g/dL Hct 42.6 (37.0-47.0) % MCV 91.2 (80-100) fL MCH 30.0 (27.0-34.0) pg MCHC 32.9 L (33.0-35.0) g/dL Plt Count 331 (150-450) 10^3/uL Neut % (Auto) 56.5 (42.2-75.2) % Lymph % (Auto) 35.0 (20.5-50.1) % [place] % (Auto) 6.6 (2-8) % Eos % (Auto) 1.5 (1.0-3.0) % Baso % (Auto) 0.4 (0.0-1.0) % Sodium 142 (136-145) mmol/L Potassium 4.4 (3.5-5.1) mmol/L Chloride 106 (98-107) mmol/L Carbon Dioxide 26 (21-32) mmol/L Anion Gap 14.4 H (7-13) mEq/L BUN 16 (7-18) mg/dL Creatinine 0.88 (0.55-1.02) mg/dL Est Cr Clr Drug Dosing 61.94 mL/min Estimated GFR (MDRD) > 60 BUN/Creatinine Ratio 18.2 (No establ ref range) Glucose 100 H (74-99) mg/dL Calcium 8.5 (8.5-10.1) mg/dL Total Bilirubin 0.2 (0.2-1.0) mg/dL AST 13 L (15-37) U/L ALT 24 (14-59) U/L Alkaline Phosphatase 121 H (46-116) U/L C-Reactive Protein 0.6 (0.0-0.9) mg/dL Total Protein 8.1 (6.4-8.2) g/dL Albumin 3.7 (3.4-5.0) g/dL Globulin 4.4 Albumin/Globulin Ratio 0.8 Amylase 18 L (25-115) U/L Lipase 96 (73-393) U/L Urine Color Yellow (YELLOW) Urine Appearance Cloudy (CLEAR) Urine pH 5.5 (5.0-9.0) Ur Specific [place] >= 1.030 (1.005-1.030) Urine Protein 30 H (NEGATIVE) Urine Glucose (UA) Negative (NEGATIVE) Urine Ketones Negative (NEGATIVE) Urine Occult Blood Trace-intact H (NEGATIVE) Urine Nitrite Negative (NEGATIVE) Urine Bilirubin Negative (NEGATIVE) Urine Urobilinogen 0.2 (0.2-1.0) mg/dL Ur Leukocyte Esterase Negative (NEGATIVE) Urine RBC 0-5 /HPF Urine WBC 0-5 (0-5/HPF) /HPF Ur Epithelial Cells Moderate H (NOT SEEN) /HPF Amorphous Sediment Occasional (NOT SEEN) /HPF Urine Bacteria Few (0-FEW/HPF) /HPF Urine Mucus Rare (NOT SEEN) /LPF - Radiology Interpretation Free Text/Narrative:: [facility] Final Radiology Report Call: [phone] assistance Online chat: [email or web address] Name: MALATHI SUAZO Age: 60Years F Date: 11/05/2020 SSN: -- : 1960 Study: CT ABDOMEN PELVIS WO CONT Requesting Physician: VELIA BARNETT Images: [id number] Addl Studies: Provided Clinical History: Rt flank pain Contrast: Without Contrast Medium: Contrast Amount: Contrast Method: Page 1 of 2 PROCEDURE INFORMATION: Exam: CT Abdomen And Pelvis Without Contrast Exam date and time: 11/05/2020 5:26 PM Age: 60 years old Clinical indication: Abdominal pain; Flank; Right; Additional info: RT flank pain TECHNIQUE: Imaging protocol: Computed tomography of the abdomen and pelvis without contrast. Radiation optimization: All CT scans at this facility use at least one of these dose optimization techniques: automated exposure control; mA and/or kV adjustment per patient size (includes targeted exams where dose is matched to clinical indication); or iterative reconstruction. COMPARISON: CT Abdomen Pelvis w Cont 08/11/2020 10:24 AM FINDINGS: Liver: Normal. No mass. Gallbladder and bile ducts: Gallbladder surgically absent. Pancreas: Normal. No ductal dilation. Spleen: Normal. No splenomegaly. Adrenal glands: Normal. No mass. Kidneys and ureters: Normal. No hydronephrosis. Stomach and bowel: Unremarkable. No obstruction. No mucosal thickening. Appendix: No evidence of appendicitis. Intraperitoneal space: Unremarkable. No free air. No significant fluid collection. Vasculature: Unremarkable. No abdominal aortic aneurysm. Lymph nodes: Unremarkable. No enlarged lymph nodes. Urinary bladder: Unremarkable as visualized. Reproductive: Fibroid uterus again noted. Bones/joints: Unremarkable. No acute fracture. MALATHI SUAZO | Final Radiology Report CONFIDENTIALITY STATEMENT This report is intended only for use by the referring physician, and only in ac cordance with law. If you received this in error, call [phone]. Page 2 of 2 Soft tissues: Unremarkable. IMPRESSION: No acute findings. Thank you for allowing us to participate in the care of your patient. Dictated and Authenticated by: Reggie Can MD 11/05/2020 5:49 PM Central Time ([place] & [place]) Departure - Departure Time of Disposition: 17:51 Disposition: Home, Self-Care 01 Condition: Good Clinical Impression: Mechanical back pain - Discharge Information *PRESCRIPTION DRUG MONITORING PROGRAM REVIEWED*: Not Applicable *COPY OF PRESCRIPTION DRUG MONITORING REPORT IN PATIENT MONIQUE: Not Applicable Instructions: Acute Back Pain, Adult, Flank Pain, Adult, [id number] Forms: ED Department Discharge Additional Instructions: Rx: Cyclobenzaprine 10mg Follow up in clinic if not improving in the next 3 to 5 days. Sepsis Event Note (ED) - Focused Exam Vital Signs: Vital Signs Temp Pulse Resp BP Pulse Ox 11/05/20 16:30 97.7 F 79 16 126/67 100 - My Orders Last 24 Hours: My Active Orders 11/05/20 16:31 Peripheral IV Care [RC] . DIRECTED Sodium Chloride 0.9% [Saline Flush] 10 ml FLUSH ASDIRECTED PRN Peripheral IV Insertion Adult [OM.PC] Stat - Assessment/Plan Last 24 Hours: My Active Orders 11/05/20 16:31 Peripheral IV Care [RC] . DIRECTED Sodium Chloride 0.9% [Saline Flush] 10 ml FLUSH ASDIRECTED PRN Peripheral IV Insertion Adult [OM.PC] Stat I have read and agree with the documentation that has been completed regarding this visit. By signing this record, I attest that the documentation was completed in my physical presence and is an accurate record of the encounter."
== END 2020-11-05 18:11 | disposition home or self-care (01) ==
LOC: DL.ED 15:51
DX: M54.5 Low back pain (principal); E11.42 Type 2 diabetes mellitus with diabetic polyneuropathy; E66.9 Obesity, unspecified; E78.00 Pure hypercholesterolemia, unspecified; I10 Essential (primary) hypertension; K21.9 Gastro-esophageal reflux disease without esophagitis; M19.90 Unspecified osteoarthritis, unspecified site; Z79.82 Long term (current) use of aspirin; Z79.84 Long term (current) use of oral hypoglycemic drugs; Z79.899 Other long term (current) drug therapy
CPT/HCPCS: 36415; 74176; 80053; 81001; 82150; 83690; 85025; 86140; 96374; 96375; 99284; J1885; J2405; J7030

== ENCOUNTER 2021-12-09 21:24 | Inpatient (IN) | payer MEDICARE, OTHER ==
[2021-12-09 22:31] LABS: ANION GAP 15.4 mEq/L (7-13); CHLORIDE,CL 107 mmol/L (98-107); SODIUM,NA 142 mmol/L (136-145)
[2021-12-09 22:44] LABS: CORONAVIRUS COVID-19 NAA NEGATIVE (NEGATIVE)
[2021-12-09] MEDS ORDERED: Iopamidol 755 Mg/ML 100 ML Bottle IVPUSH ONE (22:47)
[2021-12-09] MEDS ORDERED: Heparin Sodium/0.45% NaCl 25,000 UNITS/500 ML BAG IV SCH (23:45)
[2021-12-09] MEDS ORDERED: Heparin Sodium 5,000 Units/ML Vial SUBCUT ONE (23:48)
[2021-12-10] MEDS ORDERED: Heparin Sodium 5,000 Units/ML Vial IVPUSH ONE ×2 (00:41→11:04)
[2021-12-10] MEDS ORDERED: Albuterol 0.083% 2.5 MG/3 ML Neb Soln NEB PRN (01:31)
[2021-12-10] MEDS ORDERED: Ondansetron 4 MG/2 ML SDV IVPUSH PRN (01:31)
[2021-12-10] MEDS ORDERED: Sodium Chloride 0.9% 10 ML Syringe FLUSH PRN (01:31)
[2021-12-10] MEDS ORDERED: Magnesium Hydroxide 400 MG/5 ML Susp 30 ML Cup PO PRN (01:31)
[2021-12-10] MEDS ORDERED: Nicotine 7 MG/24 Hr Patch TRDERM PRN (01:31)
[2021-12-10] MEDS ORDERED: Docusate Sodium 100 MG Cap PO PRN (01:31)
[2021-12-10] MEDS ORDERED: Acetaminophen 325 MG Tab PO PRN (01:31)
[2021-12-10] MEDS ORDERED: Temazepam 15 MG Cap PO PRN (01:31)
[2021-12-10] MEDS ORDERED: Sodium Chloride 0.9% 1,000 ML IV SCH (01:45)
[2021-12-10] MEDS ORDERED: Heparin Sodium/0.45% NaCl 25,000 UNITS/500 ML BAG IV SCH (02:30)
[2021-12-10] MEDS ORDERED: Aspirin 325 MG Tab PO SCH (09:00)
[2021-12-10] MEDS ORDERED: Sodium Chloride 0.9% 10 ML Syringe FLUSH SCH (09:00)
[2021-12-10 09:40] LABS: ANION GAP 12.6 mEq/L (7-13); CHLORIDE,CL 109 mmol/L (98-107); SODIUM,NA 144 mmol/L (136-145)
[2021-12-10 20:44] VITALS: BP 132/67; PULSE 57
== END 2021-12-10 12:34 | DRG 176 ==
LOC: DL.ED 21:24 → DL.MS 12-10 00:37 → UNDOADMIN 12-10 00:37
PROVIDERS: ADMIT Internal Medicine; ATTEND Internal Medicine
DX: I63.40 Cerebral infarction due to embolism of unspecified cerebral artery (principal); I26.99 Other pulmonary embolism without acute cor pulmonale; Z68.41 Body mass index [BMI] 40.0-44.9, adult; E11.9 Type 2 diabetes mellitus without complications; J44.9 Chronic obstructive pulmonary disease, unspecified; E87.6 Hypokalemia; M06.9 Rheumatoid arthritis, unspecified; R53.1 Weakness; E78.00 Pure hypercholesterolemia, unspecified; I10 Essential (primary) hypertension; G47.30 Sleep apnea, unspecified; M79.7 Fibromyalgia; E66.9 Obesity, unspecified; G43.909 Migraine, unspecified, not intractable, without status migrainosus; K21.9 Gastro-esophageal reflux disease without esophagitis; F17.200 Nicotine dependence, unspecified, uncomplicated; K44.9 Diaphragmatic hernia without obstruction or gangrene; Z90.710 Acquired absence of both cervix and uterus; Z90.49 Acquired absence of other specified parts of digestive tract; K57.90 Diverticulosis of intestine, part unspecified, without perforation or abscess without bleeding; M19.90 Unspecified osteoarthritis, unspecified site; Z86.010 Personal history of colon polyps; Z87.440 Personal history of urinary (tract) infections; F32.A Depression, unspecified; E11.42 Type 2 diabetes mellitus with diabetic polyneuropathy; F17.210 Nicotine dependence, cigarettes, uncomplicated; Z79.84 Long term (current) use of oral hypoglycemic drugs; Z79.82 Long term (current) use of aspirin; Z79.899 Other long term (current) drug therapy; Z20.822 Contact with and (suspected) exposure to COVID-19
CPT/HCPCS: 0240U; 36415; 70450; 70551; 71045; 71260; 80048; 80053; 83605; 83735; 84443; 84484; 85025; 85379; 85610; 85730; 86140; 87040; 93005; 93010; 96365; 99285; 99285-25; A9270-GY; J1644; J3490; J7030; Q9967

== ENCOUNTER 2023-01-10 07:27 | Day surgery (SDC) | payer MEDICARE, OTHER ==
[~2023-01-10 07:27] MED LIST changes: -Sodium Chloride 0.9% 10 ML Syringe FLUSH PRN
[2023-01-10] MEDS ORDERED: fentaNYL 100 MCG/2 ML SDV IV ONE ×2 (08:45→08:46)
[2023-01-10] MEDS ORDERED: Midazolam 1 MG/ML 2 ML SDV IV ONE ×2 (08:46)
[2023-01-10 11:19] VITALS: PULSE 65
[2023-01-10 11:20] VITALS: BP 103/69
== END 2023-01-10 11:40 | disposition home or self-care (01) ==
LOC: DL.ENDO 07:27
PROVIDERS: ATTEND Internal Medicine Gastroenterology
DX: K21.9 Gastro-esophageal reflux disease without esophagitis (principal); K29.50 Unspecified chronic gastritis without bleeding; K44.9 Diaphragmatic hernia without obstruction or gangrene; K57.90 Diverticulosis of intestine, part unspecified, without perforation or abscess without bleeding; K64.8 Other hemorrhoids; F17.210 Nicotine dependence, cigarettes, uncomplicated; Z90.49 Acquired absence of other specified parts of digestive tract; M06.9 Rheumatoid arthritis, unspecified; E66.09 Other obesity due to excess calories; Z68.38 Body mass index [BMI] 38.0-38.9, adult; Z79.899 Other long term (current) drug therapy; Z79.82 Long term (current) use of aspirin
CPT/HCPCS: 43239; 87077; J2250; J3010; J7042; 88305

== ENCOUNTER 2023-01-18 21:07 | Emergency (ER) | payer MEDICARE, OTHER ==
[2023-01-18] MEDS ORDERED: Acetaminophen 500 MG Tab PO ONE (21:36)
[2023-01-18 21:39] LABS: BASOPHILS PERCENT AUTO 0.4 % (0.0-1.0); HEMATOCRIT 39.3 % (37.0-47.0); LYMPHOCYTES PERCENT AUTO 41.5 % (20.5-50.1); MEAN CORPUSCULAR HEMOGLOBIN 30.2 pg (27.0-34.0); MEAN CORPUSCULAR HGB CONC 33.1 g/dL (33.0-35.0); MEAN CORPUSCULAR VOLUME 91.2 fL (80-100); MONOCYTES PERCENT AUTO 6.2 % (2-8); NEUTROPHILS PERCENT AUTO 49.9 % (42.2-75.2); PLATELET COUNT,PLT 337 10^3/uL (150-450); RED BLOOD CELL COUNT 4.31 10^6/uL (4.2-5.4); WHITE BLOOD CELL COUNT,WBC 8.3 10^3/uL (5.0-10.0)
[2023-01-18 21:40] LABS: APPEARANCE,URINE CLEAR (CLEAR); BILIRUBIN,URINE NEGATIVE (NEGATIVE); COLOR,URINE YELLOW (YELLOW); GLUCOSE,URINE NEGATIVE (NEGATIVE); KETONES,URINE NEGATIVE (NEGATIVE); LEUKOCYTE ESTERASE,URINE NEGATIVE (NEGATIVE); NITRITE,URINE NEGATIVE (NEGATIVE); OCCULT BLOOD,URINE NEGATIVE (NEGATIVE); PROTEIN,URINE NEGATIVE (NEGATIVE); UROBILINOGEN,URINE 0.2 mg/dL (0.2-1.0)
[2023-01-18 21:52] LABS: A/G RATIO 0.9; ALBUMIN 3.5 g/dL (3.4-5.0); ANION GAP 14.4 mEq/L (7-13); BILIRUBIN TOTAL 0.2 mg/dL (0.2-1.0); CALCIUM 8.6 mg/dL (8.5-10.1); CREATININE 0.92 mg/dL (0.55-1.02); EST CRCL DRUG DOSING (CG) 53.12 mL/min; POTASSIUM,K 3.4 mmol/L (3.5-5.1); PROTEIN TOTAL,TP 7.2 g/dL (6.4-8.2)
[2023-01-18] MEDS ORDERED: oxyCODONE 5 MG Tab PO ONE (22:50)
[2023-01-18 23:32] VITALS: BP 130/81; PULSE 72
== END 2023-01-18 23:30 | disposition home or self-care (01) ==
LOC: DL.ED 21:07
DX: S39.011A Strain of muscle, fascia and tendon of abdomen, initial encounter (principal); M54.9 Dorsalgia, unspecified; E80.0 Hereditary erythropoietic porphyria; I10 Essential (primary) hypertension; K21.9 Gastro-esophageal reflux disease without esophagitis; M06.9 Rheumatoid arthritis, unspecified; E11.42 Type 2 diabetes mellitus with diabetic polyneuropathy; F17.210 Nicotine dependence, cigarettes, uncomplicated; E66.9 Obesity, unspecified; Z68.41 Body mass index [BMI] 40.0-44.9, adult; Z79.82 Long term (current) use of aspirin; Z79.899 Other long term (current) drug therapy; Z79.01 Long term (current) use of anticoagulants; J44.9 Chronic obstructive pulmonary disease, unspecified
CPT/HCPCS: 36415; 74176; 80053; 81003; 83690; 85025; 99284; A9270

== ENCOUNTER 2023-06-23 16:11 | Emergency (ER) | payer MEDICARE, OTHER ==
[2023-06-23 16:44] VITALS: BP 148/76; PULSE 64
== END 2023-06-23 17:01 | disposition left against medical advice (07) ==
LOC: DL.ED 16:11
DX: Z53.21 Procedure and treatment not carried out due to patient leaving prior to being seen by health care provider (principal)

== ENCOUNTER 2023-10-19 17:57 | Emergency (ER) | payer MEDICARE, OTHER | END 2023-10-19 18:20 | disposition home or self-care (01) | LOC: DL.ED 17:57 | DX: I27.82 Chronic pulmonary embolism (principal); I10 Essential (primary) hypertension; E78.00 Pure hypercholesterolemia, unspecified; K21.9 Gastro-esophageal reflux disease without esophagitis; E11.42 Type 2 diabetes mellitus with diabetic polyneuropathy; E66.9 Obesity, unspecified; Z79.82 Long term (current) use of aspirin; Z79.84 Long term (current) use of oral hypoglycemic drugs; Z79.01 Long term (current) use of anticoagulants; Z79.899 Other long term (current) drug therapy | CPT/HCPCS: 99282; 99283 ==

== ENCOUNTER 2024-04-02 18:38 | Emergency (ER) | payer MEDICARE, OTHER ==
[2024-04-02 19:37] LABS: HEMATOCRIT 45.4 % (37.0-47.0); HEMOGLOBIN 15.1 g/dL (12.0-16.0); LYMPHOCYTES PERCENT AUTO 34.4 % (20.5-50.1); MEAN CORPUSCULAR HEMOGLOBIN 30.4 pg (27.0-34.0); MEAN CORPUSCULAR HGB CONC 33.3 g/dL (33.0-35.0); MEAN CORPUSCULAR VOLUME 91.5 fL (80-100); MONOCYTES PERCENT AUTO 6.4 % (2-8); NEUTROPHILS PERCENT AUTO 57.2 % (42.2-75.2); PLATELET COUNT,PLT 398 10^3/uL (150-450); RED BLOOD CELL COUNT 4.96 10^6/uL (4.2-5.4); WHITE BLOOD CELL COUNT,WBC 9.3 10^3/uL (5.0-10.0)
[2024-04-02 19:52] LABS: ANION GAP 15.6 mEq/L (7-13); CALCIUM 9.6 mg/dL (8.5-10.1); CREATININE 0.91 mg/dL (0.55-1.02); EST CRCL DRUG DOSING (CG) 57.68 mL/min; POTASSIUM,K 3.6 mmol/L (3.5-5.1)
[2024-04-02 20:44] VITALS: BP 134/94; PULSE 72
[2024-04-02] MEDS: Albuterol/Ipratropium 3.0-0.5 MG/3 ML Neb Soln NEB ONE (21:02)
[2024-04-02] MEDS: Fluticasone NASAL Spray 16 GM Bottle NASBOTH SCH (21:08)
== END 2024-04-02 21:19 | disposition home or self-care (01) ==
LOC: DL.ED 18:38
DX: R06.02 Shortness of breath (principal); R05.9 Cough, unspecified; I10 Essential (primary) hypertension; E78.00 Pure hypercholesterolemia, unspecified; E66.9 Obesity, unspecified; E11.9 Type 2 diabetes mellitus without complications; F17.210 Nicotine dependence, cigarettes, uncomplicated; Z79.82 Long term (current) use of aspirin; Z79.899 Other long term (current) drug therapy; Z90.49 Acquired absence of other specified parts of digestive tract; Z90.710 Acquired absence of both cervix and uterus; Z68.38 Body mass index [BMI] 38.0-38.9, adult
CPT/HCPCS: 36415; 71045; 80048; 83880; 85025; 85379; 99285; A9270-GY; J7620-GY

== ENCOUNTER 2025-05-05 13:44 | Emergency (ER) | payer MEDICARE ==
[2025-05-05 15:32] VITALS: BP 122/63; PULSE 77
== END 2025-05-05 15:29 | disposition home or self-care (01) ==
LOC: DL.ED 13:44
DX: R55 Syncope and collapse (principal); I10 Essential (primary) hypertension; K21.9 Gastro-esophageal reflux disease without esophagitis; E11.9 Type 2 diabetes mellitus without complications; E78.00 Pure hypercholesterolemia, unspecified; F17.210 Nicotine dependence, cigarettes, uncomplicated; Z79.82 Long term (current) use of aspirin; Z79.899 Other long term (current) drug therapy; Z79.01 Long term (current) use of anticoagulants; Z90.49 Acquired absence of other specified parts of digestive tract
CPT/HCPCS: 82947; 93005; 99284

== ENCOUNTER 2025-05-07 17:46 | Emergency (ER) | payer MEDICARE ==
[2025-05-07] MEDS ORDERED: Sodium Chloride 0.9% 10 ML Syringe FLUSH PRN (18:17)
[2025-05-07 18:40] LABS: PLATELET COUNT,PLT 651 10^3/uL (150-450); RED BLOOD CELL COUNT 2.98 10^6/uL (4.2-5.4); WHITE BLOOD CELL COUNT,WBC 10.8 10^3/uL (5.0-10.0)
[2025-05-07] MEDS: Ondansetron 4 MG/2 ML SDV IVPUSH ONE (18:48)
[2025-05-07 18:55] LABS: BASOPHILS PERCENT AUTO 0.4 % (0.0-1.0); EOSINOPHILS PERCENT AUTO 1.8 % (1.0-3.0); LYMPHOCYTES PERCENT AUTO 26.2 % (20.5-50.1); MONOCYTES PERCENT AUTO 8.4 % (2-8); NEUTROPHILS PERCENT AUTO 63.2 % (42.2-75.2)
[2025-05-07 18:58] LABS: INR 1.0 (0.9-1.2); PTT,PARTIAL THROMBOPLSTIN TIME 21.5 SEC (22.0-34.0)
[2025-05-07 19:00] LABS: A/G RATIO 0.8; ALANINE AMINOTRANSFERASE,ALT 22 U/L (14-59); ASPARTATE AMNIOTRANSFERASE,AST 11 U/L (15-37); BILIRUBIN TOTAL 0.1 mg/dL (0.2-1.0); BLOOD UREA NITROGEN,BUN 16 mg/dL (7-18); CARBON DIOXIDE,CO2 25 mmol/L (21-32); CHLORIDE,CL 102 mmol/L (98-107); CREATININE 0.83 mg/dL (0.55-1.02); GLUCOSE RANDOM 91 mg/dL (70-99); POTASSIUM,K 3.8 mmol/L (3.5-5.1); PROTEIN TOTAL,TP 7.6 g/dL (6.4-8.2); SODIUM,NA 137 mmol/L (136-145)
[2025-05-07 19:06] LABS: ESTIMATED GFR 79 mL/min (>=60)
[2025-05-07 20:52] LABS: LYMPHOCYTES PERCENT MAN 22 % (20-50); MONOCYTES PERCENT MAN 9 % (2-8); SEG NEUTROPHILS PERCENT MAN 69 % (42-75)
[2025-05-08 00:47] LABS: IRON,FE 15.0 ug/dL (50-170); PERCENT FE SATURATION 2.6 % (20.0-50.0)
[2025-05-08 01:03] VITALS: BP 121/65; PULSE 71
[2025-05-08 02:23] LABS: RETICULOCYTE COUNT PERCENT 2 % (0.5-1.5)
== END 2025-05-08 00:12 | disposition home or self-care (01) ==
LOC: DL.ED 17:46
DX: D50.9 Iron deficiency anemia, unspecified (principal); E78.00 Pure hypercholesterolemia, unspecified; I10 Essential (primary) hypertension; K21.9 Gastro-esophageal reflux disease without esophagitis; E11.40 Type 2 diabetes mellitus with diabetic neuropathy, unspecified; F17.210 Nicotine dependence, cigarettes, uncomplicated; Z79.82 Long term (current) use of aspirin; Z90.49 Acquired absence of other specified parts of digestive tract; Z79.899 Other long term (current) drug therapy; Z79.01 Long term (current) use of anticoagulants
CPT/HCPCS: 36415; 36430; 80053; 82272; 83540; 83550; 83615; 83735; 85025; 85045; 85610; 85730; 86850; 86900; 86901; 86920; 86922; 96374; 99284; A9270; J2405; P9016

== ENCOUNTER 2025-06-03 05:22 | Day surgery (SDC) | payer MEDICARE, OTHER ==
[2025-06-03] MEDS ORDERED: Lactated Ringers 1,000 ML IV ONE (05:23)
[2025-06-03] MEDS ORDERED: Propofol 200 MG/20 ML SDV IV ONE (05:23)
[2025-06-03] MEDS ORDERED: Propofol 200 MG/20 ML SDV ONE (05:48)
[2025-06-03] MEDS: Lactated Ringers 1,000 ML IV SCH (06:14)
[2025-06-03 08:02] VITALS: BP 116/61; PULSE 63
== END 2025-06-03 08:13 | disposition home or self-care (01) ==
LOC: DL.ENDO 05:22
PROVIDERS: ATTEND Internal Medicine Gastroenterology
DX: K21.9 Gastro-esophageal reflux disease without esophagitis (principal); D64.9 Anemia, unspecified; E66.9 Obesity, unspecified; Z68.33 Body mass index [BMI] 33.0-33.9, adult
CPT/HCPCS: 43239; J2003; J2704; J7120; 00731; 88305

== ENCOUNTER 2025-07-03 06:16 | Day surgery (SDC) | payer MEDICARE, OTHER ==
[2025-07-03] MEDS ORDERED: Propofol 200 MG/20 ML SDV IV ONE (06:17)
[2025-07-03] MEDS ORDERED: Lactated Ringers 1,000 ML IV ONE (06:17)
[2025-07-03] MEDS: Lactated Ringers 1,000 ML IV SCH (06:41)
[2025-07-03 09:42] VITALS: BP 127/64; PULSE 77
[2025-07-03] MEDS ORDERED: Propofol 200 MG/20 ML SDV ONE (11:11)
== END 2025-07-03 09:45 | disposition home or self-care (01) ==
LOC: DL.ENDO 06:16
PROVIDERS: ATTEND Internal Medicine Gastroenterology
DX: D12.2 Benign neoplasm of ascending colon (principal); D64.9 Anemia, unspecified; K64.4 Residual hemorrhoidal skin tags; K57.30 Diverticulosis of large intestine without perforation or abscess without bleeding; E66.9 Obesity, unspecified; Z68.33 Body mass index [BMI] 33.0-33.9, adult
CPT/HCPCS: 00811; 45385; 88305; J2704; J7120